=== PATIENT | male | born 1950 | race Caucasian/White ===

== ENCOUNTER 2016-11-10 12:37 | Emergency (ER) | payer BC, MEDICARE ==
[2016-11-10] MEDS ORDERED: SODIUM CHLORIDE 0.9% 500 ML IV STA (14:02)
[2016-11-10 14:42] LABS: Basophils # (A) 0.1 k/uL (0-0.2); Basophils % (A) 1 %; CH 31.2; CHCM 33.7; Eosinophils # (A) 0.3 k/uL (0-0.7); Eosinophils % (A) 3 %; HCT 43.6 % (39.0-53.0); HDW 2.62; HGB 14.4 gm/dL (13.0-17.5); Luc # (Auto) 0.17; Luc % (Auto) 2; Lymphocytes % (A) 10 %; MCH 30.8 pg (25.0-35.0); MCHC 33.2 g/dL (31.0-37.0); Monocytes # (A) 0.4 k/uL (0-1.0); Monocytes % (A) 5 %; Neutrophils # (A) 7.7 k/uL (1.3-7.7); Neutrophils % (A) 80 %; RBC 4.68 m/uL (4.30-5.90); RDW 13.3 % (11.5-15.5); WBC 9.6 k/uL (3.8-10.6); WBC (Perox) 9.06
[2016-11-10 14:44] LABS: Appearance,Urine Clear (Clear); Bilirubin,Urine Negative (Negative); Glucose,Urine (UA) Negative (Negative); Ketones,Urine Negative (Negative); Leukocyte Esterase,Urine Negative (Negative); Mucus,Urine Rare /hpf; Nitrite,Urine Negative (Negative); PH, Urine 5.5 (5.0-8.0); Particle Count 2254; Protein,Urine 1+ (Negative); RBC,Urine 1 /hpf (0-5); Specific Gravity,Urine 1.013 (1.001-1.035); UA Billing (MACRO vs. MICRO) MICRO; Urobilinogen,Urine <2.0 mg/dL (<2.0); WBC,Urine 2 /hpf (0-5)
[2016-11-10 14:51] LABS: Calcium 9.1 mg/dL (8.4-10.2); Potassium 4.1 mmol/L (3.5-5.1); Total Bilirubin 0.5 mg/dL (0.2-1.3); Total Protein 7.3 g/dL (6.3-8.2)
--- NOTE | 2016-11-10 15:12 | XR ---
EXAMINATION TYPE: XR chest 2V DATE OF EXAM: 11/10/2016 2:46 PM COMPARISON: NONE HISTORY: Shortness of breath TECHNIQUE: Frontal and lateral views of the chest are obtained. FINDINGS: Scattered senescent parenchymal changes noted. Hyperinflation compatible with COPD. Clinical eventrat ion right hemidiaphragm. No evidence for infiltrate. No evidence for atelectasis. Heart size is stable. Mediastinal structures are stable and grossly unremarkable. No evidence for hilar prominence. Degenerative changes dorsal spine. IMPRESSION: 1. No evidence for acute pulmonary disease.
--- NOTE | 2016-11-10 15:43 | ED ---
Nausea/Vomiting/Diarrhea HPI - General Chief complaint: Nausea/Vomiting/Diarrhea Stated complaint: Cold/Flu Symptoms Time Seen by Provider: 11/10/16 13:57 Source: patient, RN notes reviewed Mode of arrival: ambulatory Limitations: no limitations - History of Present Illness Initial comments: 65-year-old male presents emergency Department chief complaint of nausea vomiting diarrhea and slight cough. Patient states his been present last 4 days. Patient denies any chest pain or shortness breath or palpitations. Patient denies fever or chills. Patient states he feels that he has the flu. Patient denies any sick contacts. Patient states he recently has been able to keep some fluids down. Patient hasn't dysuria hematuria. Patient offers no other complaints. - Related Data Home Medications Medication Instructions Recorded Confirmed Atenolol [Tenormin] 50 mg PO HS 08/28/15 11/10/16 Losartan/Hydrochlorothiazide 1 tab PO HS 08/28/15 11/10/16 [Hyzaar 100-25 Tablet] Ranitidine HCl [Zantac] 150 mg PO HS 08/28/15 11/10/16 Sertraline HCl [Zoloft] 200 mg PO DAILY 08/28/15 11/10/16 buPROPion XL [Wellbutrin Xl] 300 mg PO DAILY 08/28/15 11/10/16 traMADol HCL [Ultram] 100 mg PO HS 08/28/15 11/10/16 traMADol HCL [Ultram] 150 mg PO QAM 08/28/15 11/10/16 Gabapentin 600 mg PO TID 11/10/16 11/10/16 Loratadine [Claritin] 10 mg PO DAILY 11/10/16 11/10/16 Previous Rx's Medication Instructions Recorded Ondansetron Odt [Zofran Odt] 4 mg PO Q8HR PRN #10 tab 11/10/16 Allergies Allergy/AdvReac Type Severity Reaction Status Date / Time No Known Allergies Allergy Verified 11/10/16 14:32 Review of Systems ROS Statement: Those systems with pertinent positive or pertinent negative responses have been documented in the HPI. ROS Other: All systems not noted in ROS Statement are negative. Past Medical History Past Medical History: Diabetes Mellitus, GERD/Reflux, Hyperlipidemia, Hypertension, Osteoarthritis (OA), Prostate Disorder, Respiratory Disorder, Sleep Apnea/CPAP/BIPAP Additional Past Medical History / Comment(s): diet control diabetic, enlarged prostate History of Any Multi-Drug Resistant Organisms: None Reported Past Surgical History: Adenoidectomy, Bariatric Surgery, Tonsillectomy Additional Past Surgical History / Comment(s): uvula surgery, lap band Past Anesthesia/Blood Transfusion Reactions: No Reported Reaction, Family History of Problems w/ Anesthesia Additional Past Anesthesia/Blood Transfusion Reaction / Comment(s): mother-had problem with anesthesia 30 yrs ago-not sure what Past Psychological History: Anxiety, Depression Smoking Status: Former smoker Past Alcohol Use History: Rare Past Drug Use History: None Reported - Past Family History Father Family Medical History: Cancer (Skin) Mother Family Medical History: Diabetes Mellitus Brother(s) Family Medical History: No Reported History Sister(s) Family Medical History: Diabetes Mellitus Son(s) Family Medical History: No Reported History General Exam Limitations: no limitations General appearance: alert, in no apparent distress Head exam: Present: atraumatic, normocephalic, normal inspection Eye exam: Present: normal appearance, PERRL, EOMI. Absent: scleral icterus, conjunctival injection, periorbital swelling ENT exam: Present: normal exam, normal oropharynx, mucous membranes moist, TM's normal bilaterally, normal external ear exam Neck exam: Present: normal inspection, full ROM. Absent: tenderness, meningismus, lymphadenopathy Respiratory exam: Present: normal lung sounds bilaterally. Absent: respiratory distress, wheezes, rales, rhonchi, stridor Cardiovascular Exam: Present: regular rate, normal rhythm, normal heart sounds. Absent: systolic murmur, diastolic murmur, rubs, gallop, clicks GI/Abdominal exam: Present: soft, normal bowel sounds. Absent: distended, tenderness, guarding, rebound, rigid Course Vital Signs 11/10/16 11/10/16 12:53 14:29 Temperature 97.6 F Pulse Rate 62 66 Respiratory 17 18 Rate Blood Pressure 136/75 139/79 O2 Sat by Pulse 95 95 Oximetry Medical Decision Making - Medical Decision Making 65-year-old male present emergency department with cold like symptoms and GI symptoms. Patient's lab work within normal limits other than slightly elevated creatinine. This is most likely patient's baseline. Patient will be discharged at this time. Return parameters were discussed. - Lab Data Result diagrams: 11/10/16 14:30 11/10/16 14:30 Lab Results 11/10/16 11/10/16 11/10/16 Range/Units 14:30 14:30 14:30 WBC 9.6 (3.8-10.6) k/uL RBC 4.68 (4.30-5.90) m/uL Hgb 14.4 (13.0-17.5) gm/dL Hct 43.6 (39.0-53.0) % MCV 93.0 (80.0-100.0) fL MCH 30.8 (25.0-35.0) pg MCHC 33.2 (31.0-37.0) g/dL RDW 13.3 (11.5-15.5) % Plt Count 280 (150-450) k/uL Neutrophils % 80 % Lymphocytes % 10 % Monocytes % 5 % Eosinophils % 3 % Basophils % 1 % Neutrophils # 7.7 (1.3-7.7) k/uL Lymphocytes # 1.0 (1.0-4.8) k/uL Monocytes # 0.4 (0-1.0) k/uL Eosinophils # 0.3 (0-0.7) k/uL Basophils # 0.1 (0-0.2) k/uL Sodium 136 L (137-145) mmol/L Potassium 4.1 (3.5-5.1) mmol/L Chloride 99 (98-107) mmol/L Carbon Dioxide 26 (22-30) mmol/L Anion Gap 11 mmol/L BUN 21 H (9-20) mg/dL Creatinine 1.50 H (0.66-1.25) mg/dL Est GFR (MDRD) Af Amer 57 (>60 ml/min/1.73 sqM) Est GFR (MDRD) Non-Af 47 (>60 ml/min/1.73 sqM) Glucose 152 H (74-99) mg/dL Calcium 9.1 (8.4-10.2) mg/dL Total Bilirubin 0.5 (0.2-1.3) mg/dL AST 34 (17-59) U/L ALT 51 (21-72) U/L Alkaline Phosphatase 75 (38-126) U/L Total Protein 7.3 (6.3-8.2) g/dL Albumin 3.9 (3.5-5.0) g/dL Amylase 66 (30-110) U/L Lipase 98 (23-300) U/L Urine Color Yellow Urine Appearance Clear (Clear) Urine pH 5.5 (5.0-8.0) Ur Specific [place] 1.013 (1.001-1.035) Urine Protein 1+ H (Negative) Urine Glucose (UA) Negative (Negative) Urine Ketones Negative (Negative) Urine Blood Negative (Negative) Urine Nitrate Negative (Negative) Urine Bilirubin Negative (Negative) Urine Urobilinogen <2.0 (<2.0) mg/dL Ur Leukocyte Esterase Negative (Negative) Urine RBC 1 (0-5) /hpf Urine WBC 2 (0-5) /hpf Hyaline Casts 3 H (0-2) /lpf Urine Mucus Rare H (None) /hpf Influenza Type A RNA (Not Detectd) Influenza Type B (PCR) (Not Detectd) 11/10/16 Range/Units 14:30 WBC (3.8-10.6) k/uL RBC (4.30-5.90) m/uL Hgb (13.0-17.5) gm/dL Hct (39.0-53.0) % MCV (80.0-100.0) fL MCH (25.0-35.0) pg MCHC (31.0-37.0) g/dL RDW (11.5-15.5) % Plt Count (150-450) k/uL Neutrophils % % Lymphocytes % % Monocytes % % Eosinophils % % Basophils % % Neutrophils # (1.3-7.7) k/uL Lymphocytes # (1.0-4.8) k/uL Monocytes # (0-1.0) k/uL Eosinophils # (0-0.7) k/uL Basophils # (0-0.2) k/uL Sodium (137-145) mmol/L Potassium (3.5-5.1) mmol/L Chloride (98-107) mmol/L Carbon Dioxide (22-30) mmol/L Anion Gap mmol/L BUN (9-20) mg/dL Creatinine (0.66-1.25) mg/dL Est GFR (MDRD) Af Amer (>60 ml/min/1.73 sqM) Est GFR (MDRD) Non-Af (>60 ml/min/1.73 sqM) Glucose (74-99) mg/dL Calcium (8.4-10.2) mg/dL Total Bilirubin (0.2-1.3) mg/dL AST (17-59) U/L ALT (21-72) U/L Alkaline Phosphatase (38-126) U/L Total Protein (6.3-8.2) g/dL Albumin (3.5-5.0) g/dL Amylase (30-110) U/L Lipase (23-300) U/L Urine Color Urine Appearance (Clear) Urine pH (5.0-8.0) Ur Specific [place] (1.001-1.035) Urine Protein (Negative) Urine Glucose (UA) (Negative) Urine Ketones (Negative) Urine Blood (Negative) Urine Nitrate (Negative) Urine Bilirubin (Negative) Urine Urobilinogen (<2.0) mg/dL Ur Leukocyte Esterase (Negative) Urine RBC (0-5) /hpf Urine WBC (0-5) /hpf Hyaline Casts (0-2) /lpf Urine Mucus (None) /hpf Influenza Type A RNA Not Detected (Not Detectd) Influenza Type B (PCR) Not Detected (Not Detectd) Disposition Clinical Impression: URI (upper respiratory infection), Nausea vomiting and diarrhea Disposition: HOME SELF-CARE Condition: Stable Instructions: Acute Nausea and Vomiting (ED) Additional Instructions: Please return to the Emergency Department if symptoms worsen or any other concerns. Prescriptions: Ondansetron Odt [Zofran Odt] 4 mg PO Q8HR PRN #10 tab PRN Reason: Nausea Time of Disposition: 15:43
[2016-11-10 16:01] VITALS: BP 132/68; PULSE 53; RESP 16; TEMP 98.3
== END 2016-11-10 15:58 | disposition home or self-care (01) ==
LOC: EC 12:37
DX: J06.9 Acute upper respiratory infection, unspecified (principal); R11.2 Nausea with vomiting, unspecified; R19.7 Diarrhea, unspecified; K21.9 Gastro-esophageal reflux disease without esophagitis; I10 Essential (primary) hypertension; F32.9 Major depressive disorder, single episode, unspecified; Z87.891 Personal history of nicotine dependence; Z79.899 Other long term (current) drug therapy
CPT/HCPCS: 36415; 71020; 80053; 81001; 82150; 83690; 85025; 87502; 96360; 99284

== ENCOUNTER → 2017-02-26 | Outpatient (CLI) | payer MEDICARE ==
[~2017-02-26] MED LIST: REGADENOSON 0.4 MG/5 ML SYRINGE IV ONE
--- NOTE | 2017-02-26 11:47 | NM ---
EXAMINATION TYPE: NM stress lexiscan cardiolite DATE OF EXAM: 02/26/2017 COMPARISON: NONE HISTORY: Chest pain TECHNIQUE: After the intravenous administration of 10.88 mCi Tc 99m Sestamibi - Cardiolite resting S PECT images acquired 45 minutes post injection. The patient received 0.4mg Lexiscan, 26.9 mCi Tc 99m Sestamibi - Stress images obtained [address] injection FINDINGS: Review of stress and rest SPECT images demonstrates fixed defect involving the inferior wall the myoc ardium. Corresponding wall motion abnormality noted. Could not exclude a small area of stress-induced reversibility involving the lateral wall. Gated analysis shows normal wall motion with an estimated left ventricular ejection fraction of 59 %. IMPRESSION: 1. Could not exclude a small area of stress-induced reversible ischemia inferior lateral wall. 2. Fixed defect inferior wall myocardium. 3. Ejection fraction 59%. A Yellow message has been communicated to Marcos Clark MD via the [employer] system on 02/26/2017 11:44 AM, Message ID [id number].
--- NOTE | 2017-02-26 13:06 | EST ---
DATE OF SERVICE: 02/26/2017 AGE: 66Y SEX: M HT: 6'1" WT: 250 lbs. Protocol [place]: Other: Lexiscan Cardiolite Stage: Dur. of Exercise: *Heart Rate Blood Pressure *Rest: 49 Rest: 120/73 * *Max. Achieved: 65 Maximum BP: 139/79 85% PMHR: 131 100% PMHR: 154 *METS: INDICATIONS: MEDICATIONS: Given Lexiscan injection over a period of 15 seconds. Peak heart rate of 65 was achieved. Maximum blood pressure of 139/79 mmHg was noted. Resting EKG showed normal sinus rhythm with normal RI interval and QRS duration and normal ST-T waves. During Lexiscan injection, patient developed a left bundle branch block pattern subsequently without any symptoms. Subsequently patient converted to normal conduction. FINAL IMPRESSION: 1. This patient developed left bundle branch block during Lexiscan injection which converted back to the normal conduction subsequently. 2. Patient did not complain of any chest pain during the test. 3. Correlation with the nuclear study is suggested.
== END | disposition home or self-care (01) ==
LOC: RADNMMAIN 08:23
PROVIDERS: ATTEND Family Medicine
DX: R94.39 Abnormal result of other cardiovascular function study (principal); R06.00 Dyspnea, unspecified; R61 Generalized hyperhidrosis; I10 Essential (primary) hypertension
CPT/HCPCS: 93017; 78452; A9500; J2785

== ENCOUNTER → 2017-02-27 | Outpatient (CLI) | payer MEDICARE ==
[2017-02-27 15:00] LABS: CH 30.5; CHCM 32.5; HCT 45.5 % (39.0-53.0); HDW 2.28; HGB 14.7 gm/dL (13.0-17.5); MCH 30.4 pg (25.0-35.0); MCHC 32.3 g/dL (31.0-37.0); Mean Platelet Volume 6.7; RBC 4.84 m/uL (4.30-5.90); RDW 13.8 % (11.5-15.5); WBC 11.2 k/uL (3.8-10.6)
[2017-02-27 15:13] LABS: Potassium 4.9 mmol/L (3.5-5.1)
== END | disposition home or self-care (01) ==
LOC: LABPAT 14:38
PROVIDERS: ATTEND Internal Medicine Interventional Cardiology
DX: Z01.812 Encounter for preprocedural laboratory examination (principal); R94.30 Abnormal result of cardiovascular function study, unspecified
CPT/HCPCS: 36415; 80051; 82565; 84520; 85027

== ENCOUNTER 2017-03-11 07:01 | Day surgery (SDC) | payer MEDICARE ==
[2017-03-06 13:07] VITALS: BMI 33.6
[~2017-03-11 07:01] MED LIST changes: +ALPRAZolam 0.25 MG TAB PO PRN; +ALPRAZolam 0.5 MG TAB PO PRN; +ASPIRIN 325 MG TAB PO STA; +ATORVASTATIN 80 MG TAB PO STA; +NITROGLYCERIN SL TABS 0.4 MG TAB SUBLINGUAL PRN; -REGADENOSON 0.4 MG/5 ML SYRINGE IV ONE; +SODIUM CHLORIDE 0.9% 1,000 ML in EMPTY BAG 1 BAG IV ONE
[2017-03-11] MEDS ORDERED: ASPIRIN 81 MG CHEW ONE (07:30)
[2017-03-11 07:42] VITALS: TEMP 99.1
[2017-03-11] MEDS ORDERED: amLODIPine 10 MG TAB PO STA (07:46)
[2017-03-11] MEDS ORDERED: SERTRALINE 100 MG TAB PO ONE (09:00)
[2017-03-11] MEDS ORDERED: buPROPion 75 MG TAB PO ONE (09:00)
[2017-03-11] MEDS ORDERED: LIDOCAINE 2% INJ 20 MG/ML (20 ML MDV) ONE (10:30)
[2017-03-11] MEDS ORDERED: HEPARIN SODIUM 1,000 UNIT/ML VIAL ONE (10:30)
[2017-03-11] MEDS ORDERED: diphenhydrAMINE 50 MG/ML 1 ML VIAL ONE (10:30)
[2017-03-11] MEDS ORDERED: MIDAZOLAM 2 MG/2 ML VIAL ONE (10:30)
[2017-03-11] MEDS ORDERED: VERAPAMIL 2.5 MG/ML 2 ML AMP ONE (10:31)
[2017-03-11] MEDS ORDERED: MIDAZOLAM 2 MG/2 ML VIAL IV ONE (10:54)
[2017-03-11] MEDS ORDERED: diphenhydrAMINE 50 MG/ML 1 ML VIAL IVP ONE (10:54)
[2017-03-11] MEDS ORDERED: LIDOCAINE 2% INJ 20 MG/ML SQ ONE (10:59)
[2017-03-11] MEDS: VERAPAMIL SYRINGE (5 MG/10 ML) INTRAARTER ONE ×2 (11:00→11:14)
[2017-03-11] MEDS ORDERED: HEPARIN SODIUM 1,000 UNIT/ML VIAL IV ONE (11:02)
[2017-03-11] MEDS ORDERED: IODIXANOL 320 MG/ML 100 ML INTRAARTER ONE (11:12)
[2017-03-11] MEDS ORDERED: RX INFO: IV CONTRAST WAS GIVEN 1 EACH MISC MISCELLANE PRN (11:41)
[2017-03-11] MEDS ORDERED: SODIUM CHLORIDE 0.9% 1,000 ML IV SCH ×2 (11:45)
[2017-03-11] MEDS ORDERED: buPROPion 75 MG TAB PO SCH (16:00)
[2017-03-11 16:32] VITALS: BP 156/67
[2017-03-11 18:37] VITALS: PULSE 65; RESP 16
[2017-03-12] MEDS ORDERED: SERTRALINE 100 MG TAB PO SCH (09:00)
--- NOTE | 2017-03-13 13:14 | PCN ---
DATE OF SERVICE: 03/11/2017 PROCEDURE: Left heart catheterization and coronary angiography. PERFORMED BY: Dr. Jose aGrcia. CLINICAL INFORMATION: Mr. Dipesh Monaco is a 66-year-old gentleman with a history of hypertension, hyperlipidemia, previous lap band surgery and diet- controlled diabetes mellitus who also has chronic kidney disease with a creatinine of 1.78. He had a positive stress test in terms of exertional chest tightness and shortness of breath. He was advised coronary angiography and explained the risks, benefits and options. Specifically risk of contrast- induced arthropathy was discussed. Patient was hydrated orally and also in the hospital intravenously prior to the procedure. PROCEDURE NOTE: Under local anesthesia and strict aseptic precautions, a 6 Danish introducer was placed in the right radial artery. Using an Ultimate 1 catheter, I performed selective coronary angiography of the right coronary artery but had difficulty selecting the left one and used a JL4 catheter of 5 Danish caliber and performed selective coronary angiography of the left system. A pigtail catheter was used to check pressures but LV gram was not performed. About 45 to 50 mL of contrast was used. The sheath was taken out and TR band applied as per protocol with a good saturation of fingers of the right hand of 96%. A moderate conscious sedation was provided for a total duration of 30 minutes with IV Versed and Benadryl. CARDIAC CATHETERIZATION FINDINGS: The left ventricle end diastolic pressure was 12 mmHg and there was no gradient across the aortic valve. CORONARY ANGIOGRAPHY FINDINGS: Right coronary artery is a dominant vessel, has minor irregularities, no significant disease distally, bifurcates into large PDA and PLV both of which supplies sizable amount of myocardium. There is no significant disease in the dominant RCA. The PDA has about a 30% to 35% stenosis at it comes off from the RCA but no significant lesions were noted. LEFT MAIN CORONARY ARTERY: Short patent diseased vessel that bifurcates into LAD and circumflex. LEFT ANTERIOR DESCENDING CORONARY ARTERY: Good caliber vessel, extends along the anterior wall, gives off septal and diagonal branches, runs all the way to the apex supplying a sizable amount of myocardium. No significant disease is noted. In the midportion, a fair caliber diagonal supplies a sizable amount of myocardium. LEFT POSTERIOR CIRCUMFLEX CORONARY ARTERY: Technically, a nondominant vessel, has minor irregularities. In the proximal portion it gives off an obtuse marginal branch which has a first obtuse marginal branch which has a 40% stenosis in the proximal portion but no critical narrowing is noted. It almost looks like a ramus and then the vessel continues laterally, bifurcates into two small branches. The main circumflex in the AV groove is of small caliber and distribution with limited area of myocardium being supplied. The ramus intermedium/obtuse minor has about a 30% to 40% narrowing which I do not believe is significant, angiographically. FINAL IMPRESSION: This patient has a right dominant system, no significant obstructive coronary artery disease in the right coronary artery or LAD system. First obtuse minor or ramus has about a 40% narrowing. Circumflex is nondominant. Filling pressures are normal. RECOMMENDATION: I am recommending aggressive medical therapy with risk factor modification. No intervention necessary. Findings are discussed with the patient and his 2 sisters and he will be discharged later on today if he remains stable. DASHAWN
--- NOTE | 2017-03-13 13:19 | MISC ---
DATE: 03/11/[address] Clark: Thank you for the opportunity to participate in the care of Mr. Dipesh Monaco. I am enclosing my cardiac cath report for your records. This gentleman has about a 40% stenosis involving the first obtuse marginal/ramus intermedius. He has a right dominant system without significant disease in the RCA or in the LAD. Filling pressures are normal. Aggressive medical therapy with risk factor modification is advised and I will see the patient on the following his cardiac cath to evaluate the site. Thank you for your referral and please call for questions. With kindest regards. Sincerely yours, Jose TAMEZ
== END 2017-03-11 18:37 | disposition home or self-care (01) ==
LOC: CATHCVL 07:01
PROVIDERS: ATTEND Internal Medicine Interventional Cardiology
DX: I25.110 Atherosclerotic heart disease of native coronary artery with unstable angina pectoris (principal); R94.39 Abnormal result of other cardiovascular function study; I12.9 Hypertensive chronic kidney disease with stage 1 through stage 4 chronic kidney disease, or unspecified chronic kidney disease; E11.22 Type 2 diabetes mellitus with diabetic chronic kidney disease; N18.9 Chronic kidney disease, unspecified; E78.00 Pure hypercholesterolemia, unspecified; Z98.84 Bariatric surgery status; Z82.49 Family history of ischemic heart disease and other diseases of the circulatory system; Z79.82 Long term (current) use of aspirin; Z79.899 Other long term (current) drug therapy
CPT/HCPCS: 93458; 99152; C1769; C1894; J2001; J2250; J1200; Q9967; J1644

== ENCOUNTER → 2017-03-14 | Outpatient (CLI) | payer MEDICARE ==
[2017-03-14 09:46] LABS: Calcium 9.2 mg/dL (8.4-10.2); Potassium 3.9 mmol/L (3.5-5.1)
== END | disposition home or self-care (01) ==
LOC: LABWHC1 09:08
PROVIDERS: ATTEND Internal Medicine Interventional Cardiology
DX: I12.9 Hypertensive chronic kidney disease with stage 1 through stage 4 chronic kidney disease, or unspecified chronic kidney disease (principal); N18.9 Chronic kidney disease, unspecified
CPT/HCPCS: 36415; 80048

== ENCOUNTER → 2018-08-20 | Outpatient (CLI) | payer MEDICARE ==
--- NOTE | 2018-08-20 08:35 | US ---
EXAMINATION TYPE: US duplex aorta DATE OF EXAM: 08/20/2018 COMPARISON: NONE CLINICAL HISTORY: 67-year-old male I71.4 AAA w/o rupture. Screening TECHNIQUE: Multiple sonographic images of the abdominal aorta are obtained. FINDINGS: EXAM MEASUREMENTS: Abdominal Aorta: Proximal: 2.5 x 2.5 cm Mid: 2.1 x 2.1 cm Distal: 1.7 x 2.0 cm Bifurcation: BUZZ: 1.2 x 1.2 cm [place]: 1.2 x 1.3 cm Product Development Carpenter notes:Proximal portion upper limits of normal, mid, distal, and iliacs appear wnl IMPRESSION: Borderline ectatic upper abdominal aorta at 2.5 cm. Otherwise, no evidence for AAA.
== END | disposition home or self-care (01) ==
LOC: RADUSWWP 07:25
PROVIDERS: ATTEND Family Medicine
DX: I77.811 Abdominal aortic ectasia (principal); Z87.891 Personal history of nicotine dependence
CPT/HCPCS: 93979

== ENCOUNTER → 2020-06-20 | Outpatient (CLI) | payer MEDICARE ==
[2020-06-20 15:03] VITALS: BP 134/69; PULSE 91; RESP 16; TEMP 98.4; BMI 32.3
--- NOTE | 2020-06-20 16:17 | P.BASOAP ---
Subjective Progress Note Date: 06/20/20 Principal diagnosis: Morbid obesity Patient on our service. Last seen several years ago. No records available. Nahed's band was placed in 2005. Was happy a stat 384. Currently at 245. Has been happy with his LAP-BAND. States he has been having increased episodes of dysphagia and vomiting. Mild reflux at times. Somewhat reluctant to have any fluid removed. Objective - Vital Signs Vital signs: Vital Signs Temp 98.4 F 06/20/20 14:58 Pulse 91 06/20/20 14:58 Resp 16 06/20/20 14:58 BP 134/69 06/20/20 14:58 Pulse Ox Intake & Output 06/19/20 06/20/20 06/20/20 18:59 06:59 18:59 Weight 111.158 kg - Exam Abdomen: Soft, nontender, nondistended Assessment/Plan (1) Morbid obesity Narrative/Plan: Options reviewed. Will loosen the patient's band. He does not want us to empty the band currently. Following that we'll send for esophagram to evaluate for dysphagia. The patient's lap band port was palpated. The site was aseptically prepped. The Mason needle was advanced into the port. A total of 2 mL was present in the band. I removed 1 mL at this time leaving a total of 1 mL. Pressure was held and a sterile dressing was applied. Plan: Date: 06/20/20 Initial Weight: 154.221 kg Initial BMI: 44.9 Current Weight: 111.158 kg Current BMI: 32.3 Type of Surgery: Total Volume in Band: Previous Volume: Volume Removed: Volume Added: Band Size:
== END | disposition home or self-care (01) ==
LOC: BARWHC3 13:28
PROVIDERS: ATTEND Surgery
DX: Z46.51 Encounter for fitting and adjustment of gastric lap band (principal); E66.01 Morbid (severe) obesity due to excess calories; Z68.32 Body mass index [BMI] 32.0-32.9, adult
CPT/HCPCS: 99212

== ENCOUNTER → 2020-07-07 | Outpatient (CLI) | payer MEDICARE ==
--- NOTE | 2020-07-07 11:26 | FL ---
EXAMINATION TYPE: FL barium swallow DATE OF EXAM: 07/07/2020 CLINICAL INDICATION: 69-year-old male R13.10, dysphagia. Patient with lap band for 12 years, 1 mL rem sherrill last month. Feeling better. Total fluoroscopy time: 2 minutes 23 seconds. Total images: 21 COMPARISON: None FINDINGS: The swallowing mechanism is normal and hypopharyngeal anatomy is preserved. There is normal course and caliber of the esophagus. Mild dysmotility is demonstrated with blunted se condary stripping waves. Single contrast technique limits the mucosa. No obvious lesion is identified . Lap band device is in place and appears a peripherally oriented. There is satisfactory passage across the lap band with only minimal restriction to the 4 ounces of thin barium that the patient ingested. An usual course to the stomach is incidentally noted. IMPRESSION: No evidence for lap band prolapse. Only minimal restriction to the 4 ounces of thin barium that the p atient ingested. The majority of the contrast traverses the lap band promptly.
== END | disposition home or self-care (01) ==
LOC: RADUSWWP 10:29
PROVIDERS: ATTEND Surgery
DX: R13.14 Dysphagia, pharyngoesophageal phase (principal)
CPT/HCPCS: 74220

== ENCOUNTER → 2020-07-25 | Day surgery (SDC) | payer MEDICARE ==
[2020-07-21 10:43] VITALS: BMI 33.2
[~2020-07-25] MED LIST changes: -ALPRAZolam 0.25 MG TAB PO PRN; -ALPRAZolam 0.5 MG TAB PO PRN; -ASPIRIN 325 MG TAB PO STA; -ATORVASTATIN 80 MG TAB PO STA; +GLYCOPYRROLATE 0.2 MG/ML 2 ML VIAL ONE; +LACTATED RINGERS 1,000 ML IV ONE; +LACTATED RINGERS 1,000 ML IV SCH; +LIDOCAINE 1% (10MG/ML) FOR IV START INTRADERMA PRN; +LIDOCAINE 1% INJ 10MG/ML (20 ML MDV) ONE; -NITROGLYCERIN SL TABS 0.4 MG TAB SUBLINGUAL PRN; +PROPOFOL 10 MG/ML 20 ML VIAL IV ONE; -SODIUM CHLORIDE 0.9% 1,000 ML in EMPTY BAG 1 BAG IV ONE
[2020-07-25 07:18] VITALS: RESP 18; TEMP 97.8
[2020-07-25 07:26] LABS: Glucose,Whole Blood 113 mg/dL (75-99)
--- NOTE | 2020-07-25 08:06 | P.GSHP ---
History of Present Illness H&P Date: 07/25/20 Patient on our service from previous lap band placement. Her today for upper endoscopy. Has had complaints of increasing dysphagia and reflux. One month ago had 1 mL of fluid removed from his band. He has 1 mL left in there. He says his symptoms have mostly resolved. Past Medical History Past Medical History: Atrial Fibrillation, Asthma, Diabetes Mellitus, GERD/Reflux, Hyperlipidemia, Hypertension, Osteoarthritis (OA), Prostate Disorder, Sleep Apnea/CPAP/BIPAP Additional Past Medical History / Comment(s): enlarged prostate ; diagnosed with AFIB History of Any Multi-Drug Resistant Organisms: None Reported Past Surgical History: Adenoidectomy, Bariatric Surgery, Tonsillectomy Additional Past Surgical History / Comment(s): uvula surgery, lap band Past Anesthesia/Blood Transfusion Reactions: No Reported Reaction, Family History of Problems w/ Anesthesia Additional Past Anesthesia/Blood Transfusion Reaction / Comment(s): mother-had problem with anesthesia 30 yrs ago-not sure what Smoking Status: Former smoker - Past Family History Father Family Medical History: Cancer Additional Family Medical History / Comment(s): skin and throat cancer Mother Family Medical History: Diabetes Mellitus Brother(s) Family Medical History: No Reported History Sister(s) Family Medical History: Diabetes Mellitus Son(s) Family Medical History: No Reported History Medications and Allergies Home Medications Medication Instructions Recorded Confirmed Type traMADol HCL [Ultram] 100 mg PO BID 08/28/15 06/20/20 History Gabapentin 600 mg PO BID 11/10/16 07/21/20 History Rosuvastatin Calcium [Crestor] 5 mg PO HS 03/06/17 07/21/20 History amLODIPine [Norvasc] 10 mg PO DAILY 03/06/17 07/21/20 History Montelukast [Singulair] 10 mg PO HS 05/22/18 07/21/20 History metFORMIN HCL [Glucophage] 500 mg PO DAILY 05/22/18 07/21/20 History Apixaban [Eliquis] 5 mg PO BID 06/20/20 07/21/20 History Metoprolol Tartrate [Lopressor] 25 mg PO BID 06/20/20 07/21/20 History Amiodarone [Cordarone] 200 mg PO HS 07/21/20 07/21/20 History Ipratropium/Albuterol Sulfate 1 puff INHALATION BID 07/21/20 07/21/20 History [Combivent Respimat Inhaler] Irbesartan [Avapro] 300 mg PO HS 07/21/20 07/21/20 History hydrALAZINE HCL 25 mg PO TID 07/21/20 07/21/20 History Allergies Allergy/AdvReac Type Severity Reaction Status Date / Time No Known Allergies Allergy Verified 06/20/20 16:09 Surgical - Exam Vital Signs Temp Pulse Resp BP Pulse Ox 97.8 F 57 L 18 155/71 95 07/25/20 07:17 07/25/20 07:17 07/25/20 07:17 07/25/20 07:17 07/25/20 07:17 Physical exam: General: Well-developed, well-nourished HEENT: Normocephalic, sclerae nonicteric Abdomen: Nontender, nondistended Extremities: No edema Neuro: Alert and oriented Results - Labs Abnormal Lab Results - Last 24 Hours (Table) 07/25/20 Range/Units 07:24 POC Glucose (mg/dL) 113 H (75-99) mg/dL Assessment and Plan (1) GERD (gastroesophageal reflux disease) Narrative/Plan: Will proceed with upper endoscopy. Current Visit: Yes Status: Acute Code(s): K21.9 - GASTRO-ESOPHAGEAL REFLUX DISEASE WITHOUT ESOPHAGITIS SNOMED Code(s): 865265627
--- NOTE | 2020-07-25 08:16 | P.PCN ---
Date of Procedure: 07/25/20 Procedure(s) Performed: Preoperative Dx: GERD, dysphagia Postoperative Dx: Mild gastritis, esophageal plaque suspicious for fungal esophagitis Procedure: EGD with Bx Anesthesia: Sedation Endoscopist: Dr. Galvan Specimens: Sedation Endoscopic Procedure: The patient was on the endoscopy table in the left dec ubitus position. The Olympus gastroscope was inserted into the oropharynx and passed under direct visualization to the region of the third portion of the duodenum. From that point the scope was slowly withdrawn inspecting all surfaces carefully. There were no neoplastic inflammatory or polypoid lesions throughout the duodenum. The pylorus was widely patent. The stomach was carefully inspected. There was mild gastritis present. A biopsy of the antrum took place to rule out H. pylori. Retroflexion revealed a normal band plication. The esophagus was then carefully examined. There were no neoplastic inflammatory or polypoid lesions throughout the visualized esophagus. There were some whitish plaques adherent to the mucosa. Biopsies were taken to evaluate for fungal esophagitis. The patient was then taken to the recovery room in stable condition per anesthesia guidelines. Recommendations: We'll empirically begin nystatin swish and swallow. Await biopsy results. Patient interested in tightening his band. Would consider a small fill.
[2020-07-25 08:35] VITALS: BP 123/71; PULSE 52
== END ==
LOC: ORWHC2ENDO 07:01
PROVIDERS: ATTEND Surgery
DX: B37.81 Candidal esophagitis (principal); K29.50 Unspecified chronic gastritis without bleeding; K21.00 Gastro-esophageal reflux disease with esophagitis, without bleeding; I48.91 Unspecified atrial fibrillation; J45.909 Unspecified asthma, uncomplicated; E11.9 Type 2 diabetes mellitus without complications; K21.9 Gastro-esophageal reflux disease without esophagitis; E78.5 Hyperlipidemia, unspecified; I10 Essential (primary) hypertension; G47.33 Obstructive sleep apnea (adult) (pediatric); Z99.89 Dependence on other enabling machines and devices; M19.90 Unspecified osteoarthritis, unspecified site; Q79.1 Other congenital malformations of diaphragm; Z98.84 Bariatric surgery status; Z98.890 Other specified postprocedural states; Z87.891 Personal history of nicotine dependence; Z80.0 Family history of malignant neoplasm of digestive organs; Z80.8 Family history of malignant neoplasm of other organs or systems; Z83.3 Family history of diabetes mellitus; Z79.01 Long term (current) use of anticoagulants; Z79.891 Long term (current) use of opiate analgesic; Z79.899 Other long term (current) drug therapy
CPT/HCPCS: 43239; 88305; 88312; J2001; J2704

== ENCOUNTER → 2021-02-06 | Outpatient (CLI) | payer MEDICARE ==
[2021-02-06 15:36] VITALS: BP 174/71; PULSE 60; TEMP 97.4; BMI 37.8
--- NOTE | 2021-02-06 17:32 | P.BASOAP ---
Subjective Progress Note Date: 02/06/21 Principal diagnosis: Morbid obesity Patient returns for evaluation. He was last seen in July when he had an upper endoscopy. Patient was having dysphasia. Symptoms improved after his band was loosened from 2-1 mL. He has gained 40 pounds. He would like more fluid in the band. Objective - Vital Signs Vital signs: Vital Signs Temp 97.4 F L 02/06/21 15:32 Pulse 60 02/06/21 15:32 Resp BP 174/71 02/06/21 15:32 Pulse Ox Intake & Output 02/05/21 02/06/21 02/06/21 18:59 06:59 18:59 Weight 130.181 kg - Exam Abdomen: Soft, nontender, nondistended Assessment/Plan (1) Morbid obesity Narrative/Plan: Patient would like fluid in the band. We'll add 0.5 for a total of 1.5 mL. Fol low-up 2-3 months. The patient's lap band port was palpated. The site was aseptically prepped. The Mason needle was advanced into the port. A total of 0.5 ml of fluid was added. Pressure was held and a sterile dressing was applied. Plan: Date: 02/06/21 Initial Weight: 154.221 kg Initial BMI: 44.9 Current Weight: 130.181 kg Current BMI: 37.8 Type of Surgery: Total Volume in Band: 1.5 Previous Volume: Volume Removed: Volume Added: 0.5 Band Size:
== END ==
LOC: BARWHC3 13:09
PROVIDERS: ATTEND Surgery
DX: E66.01 Morbid (severe) obesity due to excess calories (principal); Z46.51 Encounter for fitting and adjustment of gastric lap band; Z68.37 Body mass index [BMI] 37.0-37.9, adult; Z87.891 Personal history of nicotine dependence
CPT/HCPCS: 99212

== ENCOUNTER → 2021-04-10 | Outpatient (CLI) | payer MEDICARE ==
[2021-04-10 13:50] VITALS: BP 174/78; PULSE 63; TEMP 97.5; BMI 38.6
--- NOTE | 2021-04-10 13:52 | P.BASOAP ---
Subjective Progress Note Date: 04/10/21 Principal diagnosis: Morbid obesity Patient complaining of decreased restriction. He was too tight at 2 mL. His band was loosened to 1 mL and he did have an upper endoscopy as well. Last visit his band was tightened to 1.5 mL. States it is still too loose and does not feel adequate restriction. He has gained some weight. Would like more fluid added in fact requesting to go back to cc. Objective - Vital Signs Vital signs: Vital Signs Temp 97.5 F L 04/10/21 13:48 Pulse 63 04/10/21 13:48 Resp BP 174/78 04/10/21 13:48 Pulse Ox Intake & Output 04/09/21 04/10/21 04/10/21 18:59 06:59 18:59 Weight 132.903 kg - Exam Abdomen: Soft, nontender, nondistended Assessment/Plan (1) Morbid obesity Narrative/Plan: Patient requesting additional fill. We'll increase to 1.8 mL. Return visit 2 months. The patient's lap band port was palpated. The site was aseptically prepped. The Mason needle was advanced into the port. A total of 0.3 ml of fluid was added for a total of 1.8 mL. Pressure was held and a sterile dressing was applied. Plan: Date: 04/10/21 Initial Weight: 154.221 kg Initial BMI: 44.9 Current Weight: 132.903 kg Current BMI: 38.6 Type of Surgery: Total Volume in Band: 1.8 Previous Volume: Volume Removed: Volume Added: 0.3 Band Size:
== END ==
LOC: BARWHC3 13:22
PROVIDERS: ATTEND Surgery
DX: E66.01 Morbid (severe) obesity due to excess calories (principal); Z46.51 Encounter for fitting and adjustment of gastric lap band; Z68.38 Body mass index [BMI] 38.0-38.9, adult
CPT/HCPCS: 99211

== ENCOUNTER → 2021-06-12 | Outpatient (CLI) | payer MEDICARE ==
[2021-06-12 09:31] VITALS: BP 144/74; PULSE 66; TEMP 98.2; BMI 38.1
--- NOTE | 2021-06-12 09:52 | P.BASOAP ---
Subjective Progress Note Date: 06/12/21 Principal diagnosis: Morbid obesity The patient comes to the office today considering a lap band adjustment. His band was too tight at 2 mL last June. It was loosened to 1. He has had 2 fills since then and he is now at 1.8 mL. The patient was considering adding 0.1 more to the band. He has been losing weight however. He does have some restriction. Still has rare episodes of dysphagia and regurgitation. Objective - Vital Signs Vital signs: Vital Signs Temp 98.2 F 06/12/21 09:28 Pulse 66 06/12/21 09:28 Resp BP 144/74 06/12/21 09:28 Pulse Ox Intake & Output 06/11/21 06/12/21 06/12/21 18:59 06:59 18:59 Weight 131.088 kg - Exam Abdomen: Soft, nontender, nondistended Assessment/Plan (1) Morbid obesity Narrative/Plan: Patient doing well at this time. Discussed options. We'll keep a 1.8 mL for now. Patient will contact me if he notices decreased restriction. Continue dietary and exercise regimen. Plan: Date: 06/12/21 Initial Weight: 154.221 kg Initial BMI: 44.9 Current Weight: 131.088 kg Current BMI: 38.1 Type of Surgery: Total Volume in Band: 1.8 Previous Volume: Volume Removed: Volume Added: Band Size:
== END ==
LOC: BARWHC3 09:11
PROVIDERS: ATTEND Surgery
DX: E66.01 Morbid (severe) obesity due to excess calories (principal); Z46.51 Encounter for fitting and adjustment of gastric lap band; Z68.38 Body mass index [BMI] 38.0-38.9, adult; Z87.891 Personal history of nicotine dependence
CPT/HCPCS: 99212

== ENCOUNTER → 2021-07-03 | Outpatient (CLI) | payer MEDICARE ==
--- NOTE | 2021-07-03 12:19 | XR ---
EXAMINATION TYPE: XR chest 2V DATE OF EXAM: 07/03/2021 COMPARISON: 11/10/2016 TECHNIQUE: PA and lateral views submitted. HISTORY: Preop FINDINGS: The lungs are clear and there is no pneumothorax, pleural effusion, or focal pneumonia. Partial cristobal ntration right hemidiaphragm. Heart size normal. No overt failure or pneumothorax. Arthropathy of the shoulders with diffuse osteopenia. Hyperinflation of the lungs. IMPRESSION: 1. Cardiomegaly correlate for COPD
== END | disposition home or self-care (01) ==
LOC: LABPAT 11:17
PROVIDERS: ATTEND Orthopaedic Surgery Orthopaedic Surgery of the Spine
DX: Z01.818 Encounter for other preprocedural examination (principal); M48.061 Spinal stenosis, lumbar region without neurogenic claudication; I51.7 Cardiomegaly
CPT/HCPCS: 71046; 87070

== ENCOUNTER → 2021-07-10 | Outpatient (CLI) | payer MEDICARE ==
[2021-07-10 13:06] LABS: Basophils # (A) 0.1 k/uL (0-0.2); Basophils % (A) 1 %; Eosinophils # (A) 0.2 k/uL (0-0.7); Eosinophils % (A) 2 %; HCT 37.8 % (39.0-53.0); Lymphocytes # (A) 1.3 k/uL (1.0-4.8); Lymphocytes % (A) 12 %; MCH 30.9 pg (25.0-35.0); MCHC 31.8 g/dL (31.0-37.0); MCV 97.1 fL (80.0-100.0); Mean Platelet Volume 7.9; Monocytes # (A) 0.5 k/uL (0-1.0); Monocytes % (A) 4 %; Neutrophils # (A) 8.7 k/uL (1.3-7.7); Neutrophils % (A) 80 %; Platelet Count 318 k/uL (150-450); RBC 3.89 m/uL (4.30-5.90); RDW 13.3 % (11.5-15.5); WBC 10.8 k/uL (3.8-10.6)
[2021-07-10 13:21] LABS: Partial Thromboplastin Time 26.8 sec (22.0-30.0); Prothrombin Time 11.1 sec (9.0-12.0)
[2021-07-10 13:22] LABS: Calcium 9.3 mg/dL (8.4-10.2); Potassium 4.7 mmol/L (3.5-5.1)
[2021-07-10 13:27] LABS: Appearance,Urine Clear (Clear); Bilirubin,Urine Negative (Negative); Blood,Urine Negative (Negative); Color,Urine Yellow; Glucose,Urine (UA) 2+ (Negative); Hyaline Casts,Urine 1 /lpf (0-2); Ketones,Urine Negative (Negative); Leukocyte Esterase,Urine Negative (Negative); Mucus,Urine Rare /hpf; Nitrite,Urine Negative (Negative); PH, Urine 5.5 (5.0-8.0); Protein,Urine 1+ (Negative); RBC,Urine <1 /hpf (0-5); Specific Gravity,Urine 1.019 (1.001-1.035); Urobilinogen,Urine <2.0 mg/dL (<2.0); WBC,Urine <1 /hpf (0-5)
== END | disposition home or self-care (01) ==
LOC: LABWHC1 11:56
PROVIDERS: ATTEND Orthopaedic Surgery Orthopaedic Surgery of the Spine
DX: Z01.812 Encounter for preprocedural laboratory examination (principal); M48.061 Spinal stenosis, lumbar region without neurogenic claudication; Z79.01 Long term (current) use of anticoagulants
CPT/HCPCS: 36415; 80048; 81001; 85025; 85610; 85730

== ENCOUNTER 2021-07-18 06:46 | Inpatient (IN) | payer MEDICARE ==
[2021-07-16 14:49] VITALS: BMI 38.5
[~2021-07-18 06:46] MED LIST changes: -GLYCOPYRROLATE 0.2 MG/ML 2 ML VIAL ONE; -LACTATED RINGERS 1,000 ML IV ONE; -LACTATED RINGERS 1,000 ML IV SCH; -LIDOCAINE 1% INJ 10MG/ML (20 ML MDV) ONE; -PROPOFOL 10 MG/ML 20 ML VIAL IV ONE; +ceFAZolin 1,000 MG in SODIUM CHLORIDE 0.9% IRRIGATIO 1,000 ML IRRIGATION PRN; +ceFAZolin 3 GM in SODIUM CHLORIDE 0.9% 100 ML IVPB PRN
[2021-07-18] MEDS ORDERED: ONDANSETRON 4 MG/2 ML VIAL IVP PRN ×2 (07:00→13:59)
[2021-07-18 07:25] LABS: Glucose,Whole Blood 141 mg/dL (75-99)
[2021-07-18] MEDS: LACTATED RINGERS 1,000 ML IV SCH ×2 (07:33→17:16)
[2021-07-18] MEDS ORDERED: LIDOCAINE 1% INJ 10MG/ML (20 ML MDV) ONE (08:00)
[2021-07-18] MEDS ORDERED: SUCCINYLCHOLINE CHLORIDE VIAL 200 MG/10 ML VIAL IV ONE (08:00)
[2021-07-18] MEDS ORDERED: KETAMINE 10 MG/ML 20 ML VIAL ONE (08:00)
[2021-07-18] MEDS ORDERED: ROCURONIUM 10 MG/ML (5 ML VIAL) IV ONE (08:00)
[2021-07-18] MEDS ORDERED: HYDROmorphone (PF) 1 MG/ML ONE (08:00)
[2021-07-18] MEDS ORDERED: MIDAZOLAM 2 MG/2 ML VIAL ONE (08:00)
[2021-07-18] MEDS ORDERED: SODIUM CHLORIDE 0.9% IRRIG 1,000 ML BTL IRRIGATION ONE (08:00)
[2021-07-18] MEDS ORDERED: ALBUTEROL INHALER 60 PUFF/8 GM INHALER (MHU) INHALATION ONE (08:00)
[2021-07-18] MEDS ORDERED: fentaNYL (PF) 50 MCG/ML 2 ML AMP ONE (08:00)
[2021-07-18] MEDS ORDERED: GLYCOPYRROLATE 0.2 MG/ML 2 ML VIAL ONE (08:00)
[2021-07-18] MEDS ORDERED: NEOSTIGMINE 1 MG/ML 10 ML VIAL ONE (08:00)
[2021-07-18] MEDS ORDERED: PROPOFOL 10 MG/ML 20 ML VIAL IV ONE (08:00)
[2021-07-18] MEDS ORDERED: PHENYLEPHRINE-0.9% NACL SYG 1,000 MCG/10 ML SYRINGE ONE (08:00)
[2021-07-18] MEDS ORDERED: ePHEDrine 50 MG/ML 1 ML AMP ONE (08:00)
[2021-07-18] MEDS ORDERED: ALBUMIN HUMAN 5% (25gm) 500 ML VIAL IVPB ONE (08:00)
[2021-07-18] MEDS ORDERED: HEPARIN SODIUM,PORCINE 10,000 UNIT/ML 1 ML VIAL ONE (08:00)
[2021-07-18] MEDS ORDERED: LIDOCAINE 0.5%-EPI 1:200,000 50 ML VIAL SQ ONE (08:02)
[2021-07-18] MEDS ORDERED: THROMBIN (BOVINE) 5,000 UNIT VIAL TOPICAL ONE (08:02)
[2021-07-18] MEDS ORDERED: GELATIN SPONGE,ABSORB (LARGE) 1 EACH SPONGE TOPICAL ONE (08:02)
[2021-07-18] MEDS ORDERED: LACTATED RINGERS 1,000 ML IV ONE ×4 (09:33→12:03)
[2021-07-18] MEDS ORDERED: HYDROmorphone 1 MG/ML 1 ML SYRINGE IVP PRN (13:58)
[2021-07-18] MEDS ORDERED: MAGNESIUM HYDROXIDE 2,400 MG/10 ML CUP PO PRN (13:58)
[2021-07-18] MEDS ORDERED: HYDROmorphone 0.5 MG/0.5 ML SYRINGE IVP PRN (13:58)
[2021-07-18] MEDS ORDERED: BENZOCAINE/MENTHOL LOZENG 1 EACH LOZENGE MUCOUS MEM PRN (13:58)
[2021-07-18] MEDS ORDERED: traMADol 50 MG TAB PO PRN (13:59)
--- NOTE | 2021-07-18 14:17 | P.OP ---
Date of Procedure: 07/18/21 Preoperative Diagnosis: Lumbar spinal stenosis, severe degenerative disease, lower extremity radiculopathy, neurogenic claudication, lower extremity weakness Postoperative Diagnosis: Same Anesthesia: GETA Pathology: none sent Condition: stable Disposition: PACU Description of Procedure: DESCRIPTION OF PROCEDURE(S): BRIEF OPERATIVE NOTE Preoperative Diagnosis: Lumbar spinal stenosis, severe degenerative disease, lower extremity radiculopathy, neurogenic claudication, lower extremity weakness Postoperative Diagnosis: Same Procedure: Laminectomy and decompression L3-4, L4-5, L5-S1 Computer CT navigation aided Minimally invasive Posterior lateral decompression and facet fusion Minimally invasive Transforaminal lumbar interbody fusion for a 360 fusion Discectomy for decompression L3-4, L4-5, L5-S1 Placement of interbody graft L3-4, L4-5, L5-S1 Use of computer navigation for fusion Left Iliac crest autograft Local autogenous bone grafting Aspiration of bone marrow from the vertebral body pedicle L3 Use of bone graft extenders Surgeon: Dr. Young Ingredient Handler: Noble CATHERINE who is present throughout the entire the case persistence during positioning, dissection, exposure, visualization, and all crucial elements of the case as well as closure. Anesthesia: General anesthesia per Estimated blood loss: Approximately 700 mL, with 300 given back with cell saver Complications: None apparent Components implanted: K2M minimally invasive [place] pedicle screw system withscrews measuring 6.5 mm in diameter to rods one6mm peek interbody cage and one 8-13 pro lift expandable cage at L5S1 and one 10-15 pro lift expandable cage at L3-4 with 10 mL of osteo amp bio4 bone graft substitute and 30 mL of the BX bone fibers to supplement the local autogenous bone graft and bone marrow a spirate Disposition: To recovery room in good stable condition. OPERATIVE INDICATIONS The patient has had severe issues at their lower extremity in her lower back over the past several years with significant worsening over the past several months. Over the past few months the patient had pain at their back and their lower extremities. The patient is having severe radicular symptoms at their lower extremity with weakness. The patient is having significant pain in their back. They are unable to obtain any comfort. We did aggressive conservative treatment with medications therapy and interventional pain management however thery were not having any relief. The patient also showed evidence of a listhesis. Amber was evidence of severe stenosis at ultiople levels which correlated with his symptoms. The patient has been through conservative treatment. We discussed various treatment options including surgery, and the patient wishes to proceed with surgery We discussed the risk, patient's alternatives and benefits of surgery including but not limited to, risk of bleeding risk of infection, risk of need for further surgery, risk of decreased, loss of motion, muscle function, malunion nonunion, hardware failure, nerve damage, paralysis, heart attack, blindness and . They understood issues with the current pandemic and the possibility of exposure. OPERATIVE SUMMARY After discussing all the risks, patient alternatives and benefits at length, the patient elected to proceed with surgical intervention, signed informed consent, and presented for their procedure. The patient was seen and examined in the preoperative holding area and the surgical site was marked. The patient was given antibiotics and brought to the operating room. The patient was sedated and intubated by anesthesia in standard fashion. The patient was positioned on to the operating room table in a prone position on the appropriate frame which was well-padded and well molded. We were careful to pad any bony prominences and pressure points. We were careful to maintain the patient's cervical spine and good neutral alignment and position throughout. The patient was prepped and draped in a normal standard fashion. An appropriate timeout and keystone protocol performed. We were able to proceed with the surgery. The local wound area was infiltrated with local anesthetic. Over the right iliac crest I was able to make small stab incisions and establish a guidepin screw fixation to the iliac crest 2. I was able place the computer referencing device over the guidepins to establish an appropriate reference point for the Ziem CT navigation. We then were able to place patient in an appropriate drape and do a navigation spin for visualization and 3-D reconstruction of the lumbar spine. I was able utilize C-arm guidance and navigation to establish appropriate position over the pedicles bilaterally at the appropriate levelsL3-4, L4-5, L5-S1 . With the appropriate levels confirmed was able to make small incisions over the appropriate pedicle sites bilaterally. Utilizing the computer navigation device I was able to establish bony landmarks at the right iliac crest for a bony reference point for the navigation device. I was able to establish a Jamshidi needle over the lateral aspect of the pedicle and advanced the trocar into the pedicle being careful not to breech superiorly inferiorly medially or laterally using computer navigation device. Position was confirmed regularly with AP and lateral images on C-arm and with the computer navigation device at the appropriate levels bilaterally. I was able to establish the trocar into the pedicle appropriately into the posterior aspect of the vertebral body bilaterally at the appropriate levels. This was done at each of the pedicle positions and each of the vertebrae at L3- 4, L4-5, L5-S1. At the superior vertebrae of L3 I was able to take approximately 25 mL of bone aspiration for use later in the case to supplement the allograft and autograft bone. I was able place the guidewire into the trocar and into the vertebral body appropriately under C-arm guidance. Dissection was taken down over the wire to the appropriate starting position for the screw placed. The appropriate length screw was chosen, threaded over the guidewire and screwed appropriately into the pedicle and vertebral body under C- arm guidance in excellent alignment and position with good bony purchase. This is done at each of the screw sites at the appropriate levelsL3-4, L4-5, L5-S1 . With the screws intact I extended the incision to connect the screw hole sites on the left. I dissected down to establish access over the pars and lamina to the base of the spinous process. I was able to expose the facet joint. At the screw sit of S1 on the left, I had to dissect a ortion of the iliac crest to make space for the retractor. at the same time, I was able harvest a small prtion of iliac crest bone graft to supplement the local autogenous bone graft and the allograft for fusion. The capsule the facet was taken down and showed some facet arthrosis at the joint. I was able to use a combination of curettes and Kerrison rongeurs and a high-speed drill to take down the facet joint and do a facetectomy. I was able get excellent foraminal decompression and central decompression with undermining across midline to perform a laminectomy centrally and contralaterally. I was able get good central decompression. The ligamentum flavum was taken down to further decompress centrally and at bilateral neural foramen. I was able to expose the disc space and visualize the traversing nerve root. Note was made of some disc protrusion and disc herniation that was abutting the traversing nerve root at the level causing further compression of the nerve root. I was able to establish a annulotomy at the appropriate level protecting soft tissue and neural structures. Note was made of some disc desiccation at the disc. I performed a complete discectomy with accommodation of curettes and rasps and scrapers. I was able get good endplate preparation at the disc space. I sized for the appropriate size interbody spacer protecting the soft tissue and neural structures. The wound was copiously irrigated and suctioned dry. There is no evidence of any dural tear or leak. I was able to pack the disc space with local autogenous bone graft as well as a small amount of bone graft which was also placed into the interbody cage itself. Protecting the soft tissue structures and neural structures I was able place the interbody cage in good alignment and good position with good fit and fill at the interbody space. Position was confirmed with C-arm guidance. I used expandable cages at L5S1 and at L3-4 and a peek cage at L45 Good hemostasis maintained. There is no evidence of any dural tear or leak. The wound was irrigated and suctioned dry. With the hardware intact, intraoperative C-arm imaging was again taken which showed good alignment and position of the hardware at the appropriate levels L3- 4, L4-5, L5-S1. We were then able to measure, contour and place the rods and appropriate hardware bilaterally. I was able to place capcrews, tighten them down, and torque them with the torque screwdriver appropriately. With this intact I was able to place the local autogenous bone graft with additional bone graft enhancer as necessary into the posterior lateral gutters over the decorticated transverse processes and facet joints on the contralateral side. The remainder of the bone graft was placed over the facet joint on the contralateral side after taking down the facet joint capsule. With the bone graft intact, a stable construct, and good decompression at the appropriate levels, we were able to proceed with closure. Good hemostasis was maintained. There is no evidence of dural tear or leak. The fascia was closed for a watertight closure. he subcuticular tissue was closed with absorbable suture. The wound was cleaned and dried and dressed with the appropriate dressing. The drapes were broken down. The patient was gently rolled back onto their hospital bed being careful to maintain their cervical spine and good neutral alignment and position. They were woken up by anesthesia, extubated, and brought to the recovery room in good stable condition. The patient will be admitted to the hospital for appropriate postoperative care, medical management and monitoring. We will continue to follow them closely about the postoperative course.
[2021-07-18] MEDS: HYDROmorphone 0.5 MG/0.5 ML SYRINGE IVP PRN ×3 (14:23→15:09)
[2021-07-18] MEDS ORDERED: METOPROLOL TARTRATE 5 MG/5 ML VIAL IVP ONE ×2 (14:34→14:40)
[2021-07-18 14:37] LABS: Glucose,Whole Blood 183 mg/dL (75-99)
[2021-07-18 15:40] LABS: Basophils # (A) 0.1 k/uL (0-0.2); Basophils % (A) 0 %; Eosinophils % (A) 0 %; HCT 33.5 % (39.0-53.0); HGB 10.3 gm/dL (13.0-17.5); Lymphocytes # (A) 0.8 k/uL (1.0-4.8); Lymphocytes % (A) 5 %; MCH 30.3 pg (25.0-35.0); MCHC 30.8 g/dL (31.0-37.0); MCV 98.5 fL (80.0-100.0); Mean Platelet Volume 7.1; Monocytes # (A) 0.6 k/uL (0-1.0); Monocytes % (A) 4 %; Neutrophils # (A) 15.5 k/uL (1.3-7.7); Neutrophils % (A) 91 %; Platelet Count 286 k/uL (150-450); RDW 13.5 % (11.5-15.5); WBC 17.1 k/uL (3.8-10.6)
[2021-07-18 15:51] LABS: ALT 16 U/L (4-49); AST 24 U/L (17-59); African American GFR (CKD) 47 (>60 ml/min/1.73 sqM); Albumin 3.9 g/dL (3.5-5.0); Albumin/Globulin Ratio 1.5; Alkaline Phosphatase 66 U/L (38-126); Anion Gap 9 mmol/L; Blood Urea Nitrogen 21 mg/dL (9-20); Calcium 8.5 mg/dL (8.4-10.2); Carbon Dioxide 23 mmol/L (22-30); Chloride 104 mmol/L (98-107); Globulin 2.6 g/dL; Glucose 162 mg/dL (74-99); Non-African American GFR(CKD) 41 (>60 ml/min/1.73 sqM); Potassium 5.2 mmol/L (3.5-5.1); Sodium 136 mmol/L (137-145); Total Bilirubin 0.5 mg/dL (0.2-1.3); Total Protein 6.5 g/dL (6.3-8.2)
--- NOTE | 2021-07-18 16:05 | FL ---
Fluoroscopy HISTORY: Pain 25 seconds fluoroscopy time supplied to the referring clinician. 2 intraoperative C-arm images docum ent the procedure. See dictated report from orthopedic surgery.
[2021-07-18 16:38] LABS: Glucose,Whole Blood 148 mg/dL (75-99)
--- NOTE | 2021-07-18 16:40 | P.CONS ---
History of Present Illness - Reason for Consult Consult date: 07/18/21 Medical management Requesting physician: Monica Young - Chief Complaint Post lumbar spine surgery with laminectomy and decompression of the L3-L4,. - History of Present Illness HISTORY OF PRESENT ILLNESS 70-year-old male one of Dr. Marcos Clark's patient with multiple medical problem was known to have history of obstructive sleep apnea on BiPAP seen Dr. Singh regular basis also had history of asthma and active fibrillation seen Dr. EDILIA leach and has been on anticoagulation. Patient had developed severe lower back pain and discomfort for the last 2 years and has done conservative management along with pain management and epidural injection. Patient was seen by Dr. Young and schedule elective laminectomy and decompression of the lumbar spine. Patient ended up coming to the hospital today and have elective surgery successfully is up in the floor still waking up still have slight bit pain otherwise doing well. His medication will be finalized patient will have his BiPAP with him today to use through the night. He is not having any wheezes or any asthma flareup at this time his A. fib with pulse rates under control and patient he is hemodynamically stable. REVIEW OF SYSTEMS Constitutional: No fever, no chills, no night sweats. No weight change. No weakness, fatigue or lethargy. No daytime sleepiness. EENT: No headache. No blurred vision or double vision, no loss of vision. No loss of Hearing, no ringing in the ears, no dizziness. No nasal drainage or congestion. No epistaxis. No sore throat. Lungs: History of asthma, obstructive sleep apnea on BiPAP, but he is complaining of No shortness of breath, cough, no sputum production. No wheezing. Cardiovascular: Has history of A. fib and atherosclerotic heart disease and he complained of No chest pain, no lower extremity edema. No palpitations. No paroxysmal nocturnal dyspnea. No orthopnea. No lightheadedness or dizziness. No syncopal episodes. Abdominal: No abdominal pain. No nausea, vomiting. No diarrhea. No cons tipation. No bloody or tarry stools.. No loss of appetite. Genitourinary: No dysuria, increased frequency, urgency. No urinary retention. Musculoskeletal: No myalgias. No muscle weakness, no gait dysfunction, no frequent falls. No back pain. No neck pain. Integumentary: No wounds, no lesions. No rash or pruritus. No unusual bruising. No change in hair or nails. Neurologic: No aphasia. No facial droop. No change in mentation. No head injury. No headache. No paralysis. No paresthesia. Psychiatric: No depression. No anxiety. No mood swings. Endocrine: No abnormal blood sugars. No weight change. No excessive sweating or thirst. No cold intolerance. SOCIAL HISTORY He quit smoking in 1999 he is to smoke half to 1 pack a day for 30 years, no alcohol abuse, no drug use, patient is and lives home alone. FAMILY HISTORY Patient has 3 children are all living and well, has 3 siblings with no major medical problem. His father still living age 89 with prostate cancer, his mother dying at age 84 from CVA. PHYSICAL EXAMINATION Gen: This is mildly obese gentleman has oxygen on laying in bed easy to to wake up at the time in no acute respiratory distress. HEENT: Head is atraumatic, normocephalic. Pupils equal, round. Sclerae is anicteric. NECK: Supple. No JVD. No lymphadenopathy. No thyromegaly. LUNGS: Decreased breath some bilaterally with fine rhonchi no crackles or wheezes. HEART: Irregular rate and rhythm, S1, S2 positive S3 No murmur. ABDOMEN: Soft. Bowel sounds are present. No masses. No tenderness. EXTREMITIES: Trace edema he skinned his left knee with slight bruise from recent injury with no sign of infection. NEUROLOGICAL: Patient is awake, alert and oriented x3. Cranial nerves 2 through 12 are grossly intact. ASSESSMENT AND PLAN 1. Post lumbar spine surgery: Patient is doing well resume home meds, incentive spirometry, DVT and GI prophylaxis protocol be done, we watch patient pain and hemodynamic st 2. A. fib: Pulse rate is under control currently we'll resume metoprolol Tatrate 12.5 mg daily patient was on Eliquis 5 mg twice a day which will be started tomorrow if possible. 3 asthma/COPD: Patient is using BiPAP, is on oxygen currently, seen pulmonary and has been on Combivent along with Singulair and Symbicort. Medication will be resume Will add incentive spirometry and watch for any atelectasis. 3 history of hypertension: Continue patient on amlodipine 10 mg a day, metoprolol 12.5 mg daily and irbesartan 300 mg daily at bedtime. 3 type 2 diabetes: Has been on metformin 500 mg daily Accu-Chek with sliding- scale's coverage will be done. 4 hyperlipidemia: Remain on Crestor 5 mg a day. 5 chronic history of neuropathy: Most likely from spinal stenosis has been on gabapentin 600 mg twice a day. 6 chronic pain management: Patient has been on tramadol and gabapentin. 7 obstructive sleep apnea: Patient has been using BiPAP regular basis. 8 GI prophylaxis: Patient will be on Pepcid 20 mg twice a day. 9 DVT prophylaxis: Resume Eliquis. Dr. Young thank you much for the consult if I can be any further help to please let me know. Past Medical History Past Medical History: Atrial Fibrillation, Asthma, Diabetes Mellitus, GERD/Reflux, Hyperlipidemia, Hypertension, Osteoarthritis (OA), Prostate Disorder, Sleep Apnea/CPAP/BIPAP Additional Past Medical History / Comment(s): enlarged prostate, uses BIPAP History of Any Multi-Drug Resistant Organisms: None Reported Past Surgical History: Adenoidectomy, Bariatric Surgery, Orthopedic Surgery, Tonsillectomy Additional Past Surgical History / Comment(s): uvula surgery, lap band, left shoulder rotator cuff repair Past Anesthesia/Blood Transfusion Reactions: No Reported Reaction, Family History of Problems w/ Anesthesia Additional Past Anesthesia/Blood Transfusion Reaction / Comm: mother-had problem with anesthesia 30 yrs ago-not sure what Smoking Status: Former smoker - Past Family History Father Family Medical History: Cancer Additional Family Medical History / Comment(s): skin and throat cancer Mother Family Medical History: Diabetes Mellitus Brother(s) Family Medical History: No Reported History Sister(s) Family Medical History: Diabetes Mellitus Son(s) Family Medical History: No Reported History Medications and Allergies Home Medications Medication Instructions Recorded Confirmed Type traMADol HCL [Ultram] 100 mg PO TID 08/28/15 07/18/21 History Gabapentin 600 mg PO BID 11/10/16 07/18/21 History Rosuvastatin Calcium [Crestor] 5 mg PO HS 03/06/17 07/18/21 History amLODIPine [Norvasc] 10 mg PO DAILY 03/06/17 07/18/21 History Montelukast [Singulair] 10 mg PO HS 05/22/18 07/18/21 History metFORMIN HCL [Glucophage] 500 mg PO DAILY 05/22/18 07/18/21 History Apixaban [Eliquis] 5 mg PO BID 06/20/20 07/18/21 History Metoprolol Tartrate [Lopressor] 12.5 mg PO QAM 06/20/20 07/18/21 History Ipratropium/Albuterol Sulfate 1 puff INHALATION BID 07/21/20 07/18/21 History [Combivent Respimat Inhaler] Irbesartan [Avapro] 300 mg PO HS 07/21/20 07/18/21 History hydrALAZINE HCL 25 mg PO TID 07/21/20 07/18/21 History Budesonide-Formot 160-4.5 Mcg 2 puff INHALATION BID 07/16/21 07/18/21 History [Symbicort 160-4.5 Mcg Inhaler] Allergies Allergy/AdvReac Type Severity Reaction Status Date / Time No Known Allergies Allergy Verified 07/18/21 07:14 Physical Exam Vitals: Vital Signs Temp Pulse Resp BP Pulse Ox 07/18/21 16:15 95 07/18/21 16:14 93 L 07/18/21 16:06 97.4 F L 93 17 126/66 64 L 07/18/21 15:45 79 16 125/66 96 07/18/21 15:30 82 16 123/69 97 07/18/21 15:15 91 16 132/72 97 07/18/21 15:00 89 16 134/67 96 07/18/21 14:45 87 16 130/68 98 07/18/21 14:30 120 H 16 172/72 98 07/18/21 14:15 113 H 16 141/65 98 07/18/21 14:08 97.2 F L 115 H 16 142/61 98 07/18/21 07:41 98.1 F 86 18 154/75 96 Intake and Output 07/18/21 07/18/21 07/18/21 06:59 14:59 22:59 Intake Total 4101 Output Total 1000 100 Balance 3101 -100 Intake: IV 4101 Output: Urine 300 100 Estimated Blood Loss 700 Other: Weight 129.5 kg Results CBC & Chem 7: 07/18/21 15:10 07/18/21 15:10 Labs: Abnormal Lab Results - Last 24 Hours (Table) 1107/18/21 07/18/21 Range/Units 07:22 14:36 15:10 WBC 17.1 H (3.8-10.6) k/uL RBC 3.40 L (4.30-5.90) m/uL Hgb 10.3 L (13.0-17.5) gm/dL Hct 33.5 L (39.0-53.0) % MCHC 30.8 L (31.0-37.0) g/dL Neutrophils # 15.5 H (1.3-7.7) k/uL Lymphocytes # 0.8 L (1.0-4.8) k/uL Sodium (137-145) mmol/L Potassium (3.5-5.1) mmol/L BUN (9-20) mg/dL Creatinine (0.66-1.25) mg/dL Glucose (74-99) mg/dL POC Glucose (mg/dL) 141 H 183 H (75-99) mg/dL 07/18/21 Range/Units 15:10 WBC (3.8-10.6) k/uL RBC (4.30-5.90) m/uL Hgb (13.0-17.5) gm/dL Hct (39.0-53.0) % MCHC (31.0-37.0) g/dL Neutrophils # (1.3-7.7) k/uL Lymphocytes # (1.0-4.8) k/uL Sodium 136 L (137-145) mmol/L Potassium 5.2 H (3.5-5.1) mmol/L BUN 21 H (9-20) mg/dL Creatinine 1.67 H (0.66-1.25) mg/dL Glucose 162 H (74-99) mg/dL POC Glucose (mg/dL) (75-99) mg/dL
[2021-07-18] MEDS: CYCLOBENZAPRINE 10 MG TAB PO PRN (16:44)
[2021-07-18] MEDS: hydrALAZINE HCL 25 MG TAB PO SCH ×2 (16:44→21:56)
[2021-07-18] MEDS: ceFAZolin 3 GM in SODIUM CHLORIDE 0.9% 100 ML IVPB SCH (16:44)
[2021-07-18] MEDS: SODIUM CHLORIDE 0.9% 1,000 ML IV SCH (16:47)
[2021-07-18] MEDS: HYDROcodone/APAP 5-325MG 1 EACH TAB PO PRN ×2 (17:47→22:05)
[2021-07-18] MEDS: IPRATROPIUM-ALBUTEROL 3 ML NEB INHALATION SCH (19:32)
[2021-07-18] MEDS: SYMBICORT 160-4.5 MCG INHALER INHALATION SCH (19:32)
[2021-07-18 19:36] LABS: Glucose,Whole Blood 166 mg/dL (75-99)
[2021-07-18] MEDS: GABAPENTIN 300 MG CAP PO SCH (21:55)
[2021-07-18] MEDS: MONTELUKAST 10 MG TAB PO SCH (21:55)
[2021-07-18] MEDS: ATORVASTATIN 10 MG TAB PO SCH (21:55)
[2021-07-18] MEDS: LOSARTAN 50 MG TAB PO SCH (21:55)
[2021-07-19] MEDS: ceFAZolin 3 GM in SODIUM CHLORIDE 0.9% 100 ML IVPB SCH (00:01)
[2021-07-19] MEDS: diazePAM 5 MG TAB PO PRN ×2 (00:05→09:48)
[2021-07-19] MEDS: CYCLOBENZAPRINE 10 MG TAB PO PRN ×3 (00:05→21:29)
[2021-07-19] MEDS: SODIUM CHLORIDE 0.9% 1,000 ML IV SCH ×2 (04:58→18:17)
[2021-07-19] MEDS: HYDROcodone/APAP 5-325MG 1 EACH TAB PO PRN ×3 (05:13→21:29)
[2021-07-19 07:13] LABS: Glucose,Whole Blood 166 mg/dL (75-99)
[2021-07-19] MEDS: IPRATROPIUM-ALBUTEROL 3 ML NEB INHALATION SCH ×2 (08:28→19:16)
[2021-07-19] MEDS: SYMBICORT 160-4.5 MCG INHALER INHALATION SCH ×2 (08:28→19:17)
[2021-07-19 09:38] LABS: Basophils # (A) 0.06 X 10*3/uL (0.00-0.10); Basophils % (A) 0.5 %; Eosinophils # (A) 0.26 X 10*3/uL (0.04-0.35); Eosinophils % (A) 2.2 %; HGB 9.6 g/dL (13.0-17.0); Lymphocytes # (A) 0.87 X 10*3/uL (0.90-5.00); Lymphocytes % (A) 7.4 %; MCH 30.6 pg (27.0-32.0); MCV 98.7 fL (80.0-97.0); Mean Platelet Volume 9.3 fL (9.5-12.2); Monocytes # (A) 1.04 X 10*3/uL (0.20-1.00); Monocytes % (A) 8.8 %; Neutrophils # (A) 9.45 X 10*3/uL (1.80-7.70); Neutrophils % (A) 80.3 %; Platelet Count 248 X 10*3/uL (140-440); RBC 3.14 X 10*6/uL (4.40-5.60); RDW 14.1 % (11.5-14.5); WBC 11.78 X 10*3/uL (4.50-10.00)
[2021-07-19] MEDS: hydrALAZINE HCL 25 MG TAB PO SCH ×3 (09:41→21:14)
[2021-07-19] MEDS: GABAPENTIN 300 MG CAP PO SCH ×2 (09:41→21:13)
[2021-07-19] MEDS: METOPROLOL TARTRATE 12.5 MG TAB PO SCH (09:41)
[2021-07-19] MEDS: SENNOSIDES-DOCUSATE SODIUM 1 EACH TAB PO SCH (09:41)
[2021-07-19] MEDS: metFORMIN 500 MG TAB PO SCH (09:42)
[2021-07-19] MEDS: FAMOTIDINE 20 MG TAB PO SCH (09:42)
[2021-07-19] MEDS: amLODIPine 10 MG TAB PO SCH (09:42)
[2021-07-19] MEDS: INSULIN ASPART (NovoLOG) 100 UNIT/ML VIAL SQ SCH ×4 (09:42→21:13)
--- NOTE | 2021-07-19 10:50 | P.PN ---
Progress Note - Text Progress Note Date: 07/19/21 Postoperative day #1 Patient is seen and examined today at bedside. The patient has some pain around the surgical site as expected. Pain is being controlled with medication. He was having some trouble last night and was also taking Valium last night which seemed to help. He is sitting up in a chair this morning. Physical Exam Afebrile with stable vital signs Abdomen is soft nontender. Chest has good excursion deep and space expiration The incision site is clean dry and intact. No erythema there is no purulence. Extremities have not had neurologic change from prior to surgery. He is able to lift his legs up he has good strength with flexion and extension at his hips knees and ankles and feet. Calves and thighs were soft nontender without evidence of DVT. Assessment/Plan Postoperative day #1 status post minimally invasive decompression fusion L34 L4 5 and L5-S1 for severe spinal stenosis with degenerative disc disease multiple medical issues being managed by medicine service Patient is progressing as expected from the surgery. he has been able already to get out of bed with assistance and sit in a chair. His Talbot has been removed and hopefully he'll be able to void on his own. We will continue to increase the patient's mobilization with therapy. We will continue pain control with oral or IV medications. I asked him to try to wean off his Valium if he is able as he has multiple medications onboard already. We'll continue to follow patient closely. he'll likely be here until Friday but possibly tomorrow
[2021-07-19 11:32] LABS: Glucose,Whole Blood 200 mg/dL (75-99)
[2021-07-19] MEDS: polyethylene glycoL 3350 17 GM POWD.PACK PO SCH (11:57)
--- NOTE | 2021-07-19 13:38 | P.PN ---
Subjective Progress Note Date: 07/19/21 HISTORY OF PRESENT ILLNESS 70-year-old male one of Dr. Marcos Clark's patient with multiple medical problem was known to have history of obstructive sleep apnea on BiPAP seen Dr. Singh regular basis also had history of asthma and active fibrillation seen Dr. EDILIA leach and has been on anticoagulation. Patient had developed severe lower back pain and discomfort for the last 2 years and has done conservative management along with pain management and epidural injection. Patient was seen by Dr. Young and schedule elective laminectomy and decompression of the lumbar spine. Patient ended up coming to the hospital today and have elective surgery successfully is up in the floor still waking up still have slight bit pain otherwise doing well. His medication will be finalized patient will have his BiPAP with him today to use through the night. He is not having any wheezes or any asthma flareup at this time his A. fib with pulse rates under control and patient he is hemodynamically stable. 07/19: Patient states that he is feeling so-so today. He is found sitting up in a chair. He has been afebrile, heart rate 118, blood pressure 104/59, pulse ox 94% on 3 L nasal cannula. WBC 11.7, hemoglobin 9.6, platelet count 248. Blood sugars running between 166 and 200. Patient is to work with PT and OT today, no plan for discharge today. Also plan to wean patient off oxygen, he is not oxygen dependent at home. REVIEW OF SYSTEMS Constitutional: No fever, no chills, no night sweats. No weight change. No weakness, fatigue or lethargy. No daytime sleepiness. EENT: No headache. No blurred vision or double vision, no loss of vision. No loss of Hearing, no ringing in the ears, no dizziness. No nasal drainage or congestion. No epistaxis. No sore throat. Lungs: History of asthma, obstructive sleep apnea on BiPAP, but he is c omplaining of No shortness of breath, cough, no sputum production. No wheezing. Cardiovascular: Has history of A. fib and atherosclerotic heart disease, denies chest pain, no lower extremity edema. No palpitations. No paroxysmal nocturnal dyspnea. No orthopnea. No lightheadedness or dizziness. No syncopal episodes. Abdominal: No abdominal pain. No nausea, vomiting. No diarrhea. No constip ation. No bloody or tarry stools.. No loss of appetite. Genitourinary: No dysuria, increased frequency, urgency. No urinary retention. Musculoskeletal: No myalgias. No muscle weakness, no gait dysfunction, no frequent falls. No back pain. No neck pain. Integumentary: No wounds, no lesions. No rash or pruritus. No unusual bruising. No change in hair or nails. Neurologic: No aphasia. No facial droop. No change in mentation. No head injury. No headache. No paralysis. No paresthesia. Psychiatric: No depression. No anxiety. No mood swings. Endocrine: No abnormal blood sugars. No weight change. No excessive sweating or thirst. No cold intolerance. PHYSICAL EXAMINATION Gen: This is obese 70-year-old male. He is found sitting in a recliner and appears to be somewhat uncomfortable secondary to pain. He is currently on O2 at 3 L nasal cannula. HEENT: Head is atraumatic, normocephalic. Pupils equal, round. Sclerae is anicteric. NECK: Supple. No JVD. No lymphadenopathy. No thyromegaly. LUNGS: Decreased breath some bilaterally with fine rhonchi no crackles or wheezes. HEART: Irregular rate and rhythm, S1, S2 positive S3 No murmur. ABDOMEN: Soft. Bowel sounds are present. No masses. No tenderness. EXTREMITIES: Trace edema he skinned his left knee with slight bruise from recent injury with no sign of infection. NEUROLOGICAL: Patient is awake, alert and oriented x3. Cranial nerves 2 through 12 are grossly intact. ASSESSMENT AND PLAN 1. Post lumbar spine surgery: Patient is doing well resume home meds, incentive spirometry, DVT and GI prophylaxis protocol be done, we watch patient pain and hemodynamic st 2. Paroxysmal A. fib: Pulse rate is under control currently we'll resume metoprolol Tatrate 12.5 mg daily patient was on Eliquis 5 mg twice a day. 3. Mild intermittent asthma/COPD: Patient is using BiPAP, is on oxygen currently, seen pulmonary and has been on Combivent along with Singulair and Symbicort. Medication will be resume Will add incentive spirometry and watch for any atelectasis. 4. History of hypertension: Continue patient on amlodipine 10 mg a day, metoprolol 12.5 mg daily and irbesartan 300 mg daily at bedtime. 5. Type 2 diabetes: Has been on metformin 500 mg daily Accu-Chek with sliding- scale's coverage will be done. 6. Hyperlipidemia: Remain on Crestor 5 mg a day. 7. Chronic history of neuropathy: Most likely from spinal stenosis has been on gabapentin 600 mg twice a day. 8. Chronic pain management: Patient has been on tramadol and gabapentin. 9. Obstructive sleep apnea: Patient has been using BiPAP regular basis. 10. GI prophylaxis: Patient will be on Pepcid 20 mg twice a day. 11. DVT prophylaxis: Resume Eliquis. Dr. Young thank you much for the consult if I can be any further help to please let me know. DISCHARGE PLAN Home with homecare most likely Impression and plan of care have been directed as dictated by the signing physician. Shellie Meneses nurse practitioner acting as scribe for signing physician. Objective - Vital Signs Vital signs: Vital Signs Temp 99.2 F 07/19/21 08:00 Pulse 118 H 07/19/21 08:00 Resp 18 07/19/21 08:00 BP 104/59 07/19/21 08:00 Pulse Ox 94 L 07/19/21 08:00 Intake & Output 07/18/21 07/19/21 07/19/21 18:59 06:59 18:59 Intake Total 4101 1700 Output Total 1200 1300 Balance 2901 400 Weight 129.5 kg Intake: IV 4101 Intake, IV Titration 1100 Amount Sodium Chloride 0.9% 1, 900 000 ml @ 75 mls/hr IV . [id number] [facility] Rx#:[id number] ceFAZolin 3 gm In Sodium 200 Chloride 0.9% 100 ml @ 200 mls/hr IVPB ONCE PRN Rx#:[id number] Oral 600 Output: Urine 500 1300 Estimated Blood Loss 700 Other: Voiding Method Indwelling Catheter Indwelling Catheter - Labs CBC & Chem 7: 07/19/21 05:30 07/18/21 15:10 Labs: Abnormal Lab Results - Last 24 Hours (Table) 07/18/21 07/18/21 07/18/21 Range/Units 14:36 15:10 15:10 WBC 17.1 H (3.8-10.6) k/uL RBC 3.40 L (4.30-5.90) m/uL Hgb 10.3 L (13.0-17.5) gm/dL Hct 33.5 L (39.0-53.0) % MCV (80.0-97.0) fL MCHC 30.8 L (31.0-37.0) g/dL MPV (9.5-12.2) fL Immature Gran # (0.00-0.04) X 10*3/uL Neutrophils # 15.5 H (1.3-7.7) k/uL Lymphocytes # 0.8 L (1.0-4.8) k/uL Monocytes # (0.20-1.00) X 10*3/uL Sodium 136 L (137-145) mmol/L Potassium 5.2 H (3.5-5.1) mmol/L BUN 21 H (9-20) mg/dL Creatinine 1.67 H (0.66-1.25) mg/dL Glucose 162 H (74-99) mg/dL POC Glucose (mg/dL) 183 H (75-99) mg/dL 07/18/21 07/18/21 07/19/21 Range/Units 16:35 19:34 05:30 WBC 11.78 H (3.8-10.6) k/uL RBC 3.14 L (4.30-5.90) m/uL Hgb 9.6 L (13.0-17.5) gm/dL Hct 31.0 L (39.0-53.0) % MCV 98.7 H (80.0-97.0) fL MCHC 31.0 L (31.0-37.0) g/dL MPV 9.3 L (9.5-12.2) fL Immature Gran # 0.10 H (0.00-0.04) X 10*3/uL Neutrophils # 9.45 H (1.3-7.7) k/uL Lymphocytes # 0.87 L (1.0-4.8) k/uL Monocytes # 1.04 H (0.20-1.00) X 10*3/uL Sodium (137-145) mmol/L Potassium (3.5-5.1) mmol/L BUN (9-20) mg/dL Creatinine (0.66-1.25) mg/dL Glucose (74-99) mg/dL POC Glucose (mg/dL) 148 H 166 H (75-99) mg/dL 07/19/21 Range/Units 06:53 WBC (3.8-10.6) k/uL RBC (4.30-5.90) m/uL Hgb (13.0-17.5) gm/dL Hct (39.0-53.0) % MCV (80.0-97.0) fL MCHC (31.0-37.0) g/dL MPV (9.5-12.2) fL Immature Gran # (0.00-0.04) X 10*3/uL Neutrophils # (1.3-7.7) k/uL Lymphocytes # (1.0-4.8) k/uL Monocytes # (0.20-1.00) X 10*3/uL Sodium (137-145) mmol/L Potassium (3.5-5.1) mmol/L BUN (9-20) mg/dL Creatinine (0.66-1.25) mg/dL Glucose (74-99) mg/dL POC Glucose (mg/dL) 166 H (75-99) mg/dL
[2021-07-19 15:36] LABS: African American GFR (CKD) 35.9 (60.0-200.0); Anion Gap 13.3 mmol/L (4.00-12.00); Calcium 8.4 mg/dL (8.7-10.3); Carbon Dioxide 19.7 mmol/L (21.6-31.8); Potassium 4.8 mmol/L (3.5-5.5)
[2021-07-19 16:37] LABS: Glucose,Whole Blood 190 mg/dL (75-99)
[2021-07-19 20:33] LABS: Glucose,Whole Blood 191 mg/dL (75-99)
[2021-07-19] MEDS: MONTELUKAST 10 MG TAB PO SCH (21:13)
[2021-07-19] MEDS: ATORVASTATIN 10 MG TAB PO SCH (21:14)
[2021-07-19] MEDS: LOSARTAN 50 MG TAB PO SCH (21:14)
[2021-07-19] MEDS: APIXABAN 5 MG TAB PO SCH (21:14)
[2021-07-20] MEDS: SODIUM CHLORIDE 0.9% 1,000 ML IV SCH (05:45)
[2021-07-20 06:48] LABS: Glucose,Whole Blood 140 mg/dL (75-99)
[2021-07-20] MEDS: INSULIN ASPART (NovoLOG) 100 UNIT/ML VIAL SQ SCH ×4 (07:29→20:29)
[2021-07-20] MEDS: GABAPENTIN 300 MG CAP PO SCH ×2 (07:32→20:29)
[2021-07-20] MEDS: SENNOSIDES-DOCUSATE SODIUM 1 EACH TAB PO SCH (07:32)
[2021-07-20] MEDS: FAMOTIDINE 20 MG TAB PO SCH (07:32)
[2021-07-20] MEDS: metFORMIN 500 MG TAB PO SCH (07:33)
[2021-07-20] MEDS: amLODIPine 10 MG TAB PO SCH (07:33)
[2021-07-20] MEDS: APIXABAN 5 MG TAB PO SCH ×2 (07:33→20:28)
[2021-07-20] MEDS: METOPROLOL TARTRATE 12.5 MG TAB PO SCH (07:33)
[2021-07-20] MEDS: polyethylene glycoL 3350 17 GM POWD.PACK PO SCH (07:33)
[2021-07-20] MEDS: hydrALAZINE HCL 25 MG TAB PO SCH ×3 (07:33→20:28)
--- NOTE | 2021-07-20 07:47 | P.PN ---
Progress Note - Text Progress Note Date: 07/20/21 Postoperative day #2 Patient is seen and examined today at bedside. The patient has some pain around the surgical site as expected. He is having difficulty with getting in and out of bed and is still requiring 2 person max assist. He says he is doing better than yesterday. Pain is being controlled with medication. He has been able to void freely. He is tolerating his diet adequately. He was coughing up some sputum last night and this morning but he says he does this each morning. It is nonpurulent. It is nonbloody. He is breathing comfortably. Physical Exam Afebrile with stable vital signs Abdomen is soft nontender. Chest has good excursion deep and space expiration The incision site is clean dry and intact. No erythema there is no purulence. The area is essentially clear. Extremities have not had neurologic change from prior to surgery. He has sustained dorsal flexion and EHL on his legs. He has significant difficulty with trying to mobilize and an out of bed and rolling over at this point but he feels it is improving. Calves and thighs were soft nontender without evidence of DVT. Assessment/Plan Postoperative day #2 status post minimally invasive decompression fusion L3 4 L4 5 L5-S1 for his severe spinal stenosis and central disc disease lower extremity radiculopathy Patient is progressing as expected from the surgery. His mobilization is coming somewhat slowly. Some of that is due to his size as well as the magnitude of the operation. He is making progress nonetheless and is mobilizing better. He is voiding freely and tolerating his diet adequately. He is not yet had a bowel movement. His pains adequately controlled and he is transitioning over to oral medications. He had some spitting up of sputum is not having any fevers. Sputum is tannish without any evidence of purulence. He says he does this every morning even at home. He does not seem to have any specific pulmonary process and he does not seem to be specifically nauseous. We will continue to monitor this. The patient is making progress but he may need some help at home versus the consideration of [facility] before home. We will have case management see him in preparation in case we need assistance before returning home. If he continues to make progress Zaira has from yesterday to today there is potential for him for discharge home Friday or Friday We will continue to increase the patient's mobilization with therapy. We will continue pain control with oral or IV medications. We'll continue to follow patient closely.
[2021-07-20] MEDS: SYMBICORT 160-4.5 MCG INHALER INHALATION SCH ×2 (08:36→19:45)
[2021-07-20] MEDS: IPRATROPIUM-ALBUTEROL 3 ML NEB INHALATION SCH ×2 (08:36→19:45)
[2021-07-20 10:34] LABS: HCT 34.2 % (39.0-53.0); HGB 10.7 gm/dL (13.0-17.5); MCH 30.7 pg (25.0-35.0); MCHC 31.4 g/dL (31.0-37.0); MCV 97.8 fL (80.0-100.0); Mean Platelet Volume 7.4; Platelet Count 262 k/uL (150-450); RBC 3.49 m/uL (4.30-5.90); RDW 13.2 % (11.5-15.5); WBC 15.7 k/uL (3.8-10.6)
[2021-07-20 10:57] LABS: ALT 10 U/L (4-49); AST 38 U/L (17-59); African American GFR (CKD) 44 (>60 ml/min/1.73 sqM); Albumin/Globulin Ratio 1.1; Alkaline Phosphatase 62 U/L (38-126); Anion Gap 8 mmol/L; Blood Urea Nitrogen 20 mg/dL (9-20); Calcium 8.8 mg/dL (8.4-10.2); Carbon Dioxide 20 mmol/L (22-30); Chloride 103 mmol/L (98-107); Globulin 2.8 g/dL; Glucose 266 mg/dL (74-99); Non-African American GFR(CKD) 38 (>60 ml/min/1.73 sqM); Potassium 5.2 mmol/L (3.5-5.1); Sodium 131 mmol/L (137-145); Total Bilirubin 0.8 mg/dL (0.2-1.3); Total Protein 5.8 g/dL (6.3-8.2)
[2021-07-20 12:01] LABS: Glucose,Whole Blood 238 mg/dL (75-99)
[2021-07-20] MEDS: CYCLOBENZAPRINE 10 MG TAB PO PRN ×2 (12:48→20:35)
--- NOTE | 2021-07-20 13:32 | P.PN ---
Subjective Progress Note Date: 07/20/21 HISTORY OF PRESENT ILLNESS 70-year-old male one of Dr. Marcos Clark's patient with multiple medical problem was known to have history of obstructive sleep apnea on BiPAP seen Dr. Singh regular basis also had history of asthma and active fibrillation seen Dr. EDILIA leach and has been on anticoagulation. Patient had developed severe lower back pain and discomfort for the last 2 years and has done conservative management along with pain management and epidural injection. Patient was seen by Dr. Young and schedule elective laminectomy and decompression of the lumbar spine. Patient ended up coming to the hospital today and have elective surgery successfully is up in the floor still waking up still have slight bit pain otherwise doing well. His medication will be finalized patient will have his BiPAP with him today to use through the night. He is not having any wheezes or any asthma flareup at this time his A. fib with pulse rates under control and patient he is hemodynamically stable. 07/19: Patient states that he is feeling so-so today. He is found sitting up in a chair. He has been afebrile, heart rate 118, blood pressure 104/59, pulse ox 94% on 3 L nasal cannula. WBC 11.7, hemoglobin 9.6, platelet count 248. Blood sugars running between 166 and 200. Patient is to work with PT and OT today, no plan for discharge today. Also plan to wean patient off oxygen, he is not oxygen dependent at home. 07/20: Patient is now off oxygen with pulse ox of 94%, he has been afebrile, heart rate low 100s, blood pressure 131/64. The blood work reveals WBC 15.7, hemoglobin 10.7, platelet count 262. Sodium 131, potassium 5.2, chloride 103, CO2 20, BUN 20 creatinine 1.78. Blood sugars are running between 140 and 238. IV fluids will be discontinued. Patient has worked with PT and OT but needs significant assistance with recommendations for subacute rehab. managed care manager is following. REVIEW OF SYSTEMS Constitutional: No fever, no chills, no night sweats. No weight change. Noted weakness, fatigue or lethargy. No daytime sleepiness. EENT: No headache. No blurred vision or double vision, no loss of vision. No loss of Hearing, no ringing in the ears, no dizziness. No nasal drainage or congestion. No epistaxis. No sore throat. Lungs: History of asthma, obstructive sleep apnea on BiPAP, but he is complaining of No shortness of breath, cough, no sputum production. No wheezing. Cardiovascular: Has history of A. fib and atherosclerotic heart disease, denies chest pain, no lower extremity edema. No palpitations. No paroxysmal nocturnal dyspnea. No orthopnea. No lightheadedness or dizziness. No syncopal episodes. Abdominal: No abdominal pain. No nausea, vomiting. No diarrhea. No constipation. No bloody or tarry stools.. No loss of appetite. Genitourinary: No dysuria, increased frequency, urgency. No urinary retention. Musculoskeletal: No myalgias. Noted muscle weakness, noted gait dysfunction, no frequent falls. No back pain. No neck pain. Integumentary: No wounds, no lesions. No rash or pruritus. No unusual bruising. No change in hair or nails. Neurologic: No aphasia. No facial droop. No change in mentation. No head injury. No headache. No paralysis. No paresthesia. Psychiatric: No depression. No anxiety. No mood swings. Endocrine: No abnormal blood sugars. No weight change. No excessive sweating or thirst. No cold intolerance. PHYSICAL EXAMINATION Gen: This is obese 70-year-old male. He is found sitting in a recliner and appears to be in no acute distress. Patient is off oxygen. HEENT: Head is atraumatic, normocephalic. Pupils equal, round. Sclerae is anicteric. NECK: Supple. No JVD. No lymphadenopathy. No thyromegaly. LUNGS: Decreased breath some bilaterally with fine rhonchi no crackles or wheezes. HEART: Irregular rate and rhythm, S1, S2 positive S3 No murmur. ABDOMEN: Soft. Bowel sounds are present. No masses. No tenderness. EXTREMITIES: Trace edema he skinned his left knee with slight bruise from recent injury with no sign of infection. NEUROLOGICAL: Patient is awake, alert and oriented x3. Cranial nerves 2 through 12 are grossly intact. ASSESSMENT AND PLAN 1. Post lumbar spine surgery: Patient is doing well resume home meds, incentive spirometry, DVT and GI prophylaxis protocol be done, continue current pain management per orthopedics, PT and OT 2. Acute kidney injury with chronic kidney disease stage III. Patient has been on IV fluids which will be to discontinued today. Recheck renal function tomorrow. 3. Paroxysmal A. fib: Pulse rate is under control currently we'll resume metoprolol Tatrate 12.5 mg daily patient was on Eliquis 5 mg twice a day. 3. Mild intermittent asthma/COPD without exacerbation: Patient is using BiPAP, is on oxygen currently, seen pulmonary and has been on Combivent along with Singulair and Symbicort. Medication will be resume Will add incentive spirometry and watch for any atelectasis. 4. History of hypertension: Continue patient on amlodipine 10 mg a day, metoprolol 12.5 mg daily and irbesartan 300 mg daily at bedtime. 5. Type 2 diabetes with hyperglycemia: Has been on metformin 500 mg daily Accu- Chek with sliding-scale's coverage will be done. 6. Hyperlipidemia: Remain on Crestor 5 mg a day. 7. Chronic history of neuropathy: Most likely from spinal stenosis has been on gabapentin 600 mg twice a day. 8. Chronic pain management: Patient has been on tramadol and gabapentin. 9. Obstructive sleep apnea: Patient has been using BiPAP regular basis. 10. GI prophylaxis: Patient will be on Pepcid 20 mg twice a day. 11. DVT prophylaxis: Resume Eliquis. Dr. Young thank you much for the consult if I can be any further help to please let me know. DISCHARGE PLAN Subacute rehab Impression and plan of care have been directed as dictated by the signing physician. Shellie Meneses nurse practitioner acting as scribe for signing physician. Objective - Vital Signs Vital signs: Vital Signs Temp 97.8 F 07/20/21 06:10 Pulse 112 H 07/20/21 08:49 Resp 19 07/20/21 06:10 BP 131/64 07/20/21 06:10 Pulse Ox 94 L 07/20/21 06:10 Intake & Output 07/19/21 07/20/21 07/20/21 18:59 06:59 18:59 Intake Total 400 1200 Output Total 50 700 Balance 350 500 Intake: Intake, IV Titration 900 Amount Sodium Chloride 0.9% 1, 900 000 ml @ 75 mls/hr IV . [id number] [facility] Rx#:[id number] Oral 400 300 Output: Urine 50 700 Other: Voiding Method Urinal - Labs CBC & Chem 7: 07/20/21 09:58 07/20/21 09:58 Labs: Abnormal Lab Results - Last 24 Hours (Table) 07/19/21 07/19/21 07/19/21 Range/Units 05:30 11:30 16:32 Carbon Dioxide 19.7 L (21.6-31.8) mmol/L Anion Gap 13.30 H (4.00-12.00) mmol/L Creatinine 2.1 H (0.6-1.5) mg/dL Est GFR (CKD-EPI)AfAm 35.9 L (60.0-200.0) Est GFR (CKD-EPI)NonAf 31.0 L (60.0-200.0) BUN/Creatinine Ratio 10.00 L (12.00-20.00) Ratio Glucose 131 H (70-110) mg/dL POC Glucose (mg/dL) 200 H 190 H (75-99) mg/dL Calcium 8.4 L (8.7-10.3) mg/dL 07/19/21 07/20/21 Range/Units 20:32 06:46 Carbon Dioxide (21.6-31.8) mmol/L Anion Gap (4.00-12.00) mmol/L Creatinine (0.6-1.5) mg/dL Est GFR (CKD-EPI)AfAm (60.0-200.0) Est GFR (CKD-EPI)NonAf (60.0-200.0) BUN/Creatinine Ratio (12.00-20.00) Ratio Glucose (70-110) mg/dL POC Glucose (mg/dL) 191 H 140 H (75-99) mg/dL Calcium (8.7-10.3) mg/dL
[2021-07-20] MEDS: HYDROcodone/APAP 5-325MG 1 EACH TAB PO PRN ×2 (15:53→20:34)
[2021-07-20 16:41] LABS: Glucose,Whole Blood 236 mg/dL (75-99)
[2021-07-20 20:14] LABS: Glucose,Whole Blood 222 mg/dL (75-99)
[2021-07-20] MEDS: LOSARTAN 50 MG TAB PO SCH (20:28)
[2021-07-20] MEDS: ATORVASTATIN 10 MG TAB PO SCH (20:28)
[2021-07-20] MEDS: MONTELUKAST 10 MG TAB PO SCH (20:28)
[2021-07-21] MEDS: CYCLOBENZAPRINE 10 MG TAB PO PRN ×2 (03:29→17:49)
[2021-07-21] MEDS: HYDROcodone/APAP 5-325MG 1 EACH TAB PO PRN ×3 (03:29→17:49)
[2021-07-21 07:18] LABS: Glucose,Whole Blood 213 mg/dL (75-99)
[2021-07-21] MEDS: SYMBICORT 160-4.5 MCG INHALER INHALATION SCH ×2 (07:19→20:25)
[2021-07-21] MEDS: IPRATROPIUM-ALBUTEROL 3 ML NEB INHALATION SCH ×2 (07:19→20:26)
[2021-07-21] MEDS: METOPROLOL TARTRATE 12.5 MG TAB PO SCH (07:31)
[2021-07-21] MEDS: hydrALAZINE HCL 25 MG TAB PO SCH ×3 (07:31→21:55)
[2021-07-21] MEDS: metFORMIN 500 MG TAB PO SCH (07:31)
[2021-07-21] MEDS: amLODIPine 10 MG TAB PO SCH (07:31)
[2021-07-21] MEDS: FAMOTIDINE 20 MG TAB PO SCH (07:31)
[2021-07-21] MEDS: polyethylene glycoL 3350 17 GM POWD.PACK PO SCH (07:31)
[2021-07-21] MEDS: INSULIN ASPART (NovoLOG) 100 UNIT/ML VIAL SQ SCH ×4 (07:31→21:55)
[2021-07-21] MEDS: APIXABAN 5 MG TAB PO SCH ×2 (07:31→21:55)
[2021-07-21] MEDS: GABAPENTIN 300 MG CAP PO SCH ×2 (07:32→21:55)
[2021-07-21] MEDS: SENNOSIDES-DOCUSATE SODIUM 1 EACH TAB PO SCH ×2 (07:32→13:57)
[2021-07-21 10:34] LABS: African American GFR (CKD) 46.3 (60.0-200.0); Albumin 3.2 g/dL (3.8-4.9); Albumin/Globulin Ratio 1.39 (1.60-3.17); Anion Gap 13.5 mmol/L (4.00-12.00); BUN/Creat Ratio 13.76 Ratio (12.00-20.00); Blood Urea Nitrogen 23.4 mg/dL (9.0-27.0); Calcium 8.7 mg/dL (8.7-10.3); Carbon Dioxide 16.5 mmol/L (21.6-31.8); Globulin 2.3 g/dL (1.6-3.3); Potassium 4.9 mmol/L (3.5-5.5); Total Bilirubin 0.4 mg/dL (0.30-1.20); Total Protein 5.5 g/dL (6.2-8.2)
[2021-07-21 10:40] LABS: HCT 30.8 % (39.6-50.0); HGB 9.8 g/dL (13.0-17.0); MCH 29.8 pg (27.0-32.0); MCHC 31.8 g/dL (32.0-37.0); MCV 93.6 fL (80.0-97.0); Mean Platelet Volume 9.8 fL (9.5-12.2); Platelet Count 273 X 10*3/uL (140-440); RBC 3.29 X 10*6/uL (4.40-5.60); WBC 16.54 X 10*3/uL (4.50-10.00)
--- NOTE | 2021-07-21 11:07 | P.PN ---
Subjective Progress Note Date: 07/21/21 This is a 70- year old male who is status-post minimally invasive decompression fusion L3 4 L4 5 L5-S1 on 07/18/[address] Young. Today is post-operative day #3. Patient is seen and examined bedside. Patient is up to the bedside chair. He feels his mobilization has continued to improve, although he is requiring 1-2 person assist to the chair. He would like to discuss rehab on discharge. His pain is well controlled. He denies chest pain, shortness of breath, nausea, vomiting, fevers, chills. No new complaints. Objective - Vital Signs Vital signs: Vital Signs Temp 98.4 F 07/21/21 01:03 Pulse 114 H 07/21/21 09:39 Resp 16 07/21/21 09:39 BP 112/73 07/21/21 09:39 Pulse Ox 96 07/21/21 09:39 Intake & Output 07/20/21 07/21/21 07/21/21 18:59 06:59 18:59 Intake Total 1080 300 Output Total 1000 Balance 80 300 Intake: Oral 1080 300 Output: Urine 1000 Other: Voiding Method Urinal Urinal # Voids 3 1 - Exam patient seen and examined bedside this morning. On examination, he is sitting up in the bedside chair. On inspection of the low back, there are clean, dry, intact surgical dressings in place. No bleeding or drainage through the dressings. on inspection of the bilateral lower extremities, the patient has good strength and range of motion of the ankles. Patient has good dorsiflexion and plantarflexion of the ankle. EHL function intact bilaterally. The bilateral lower extremities are warm and well-perfused with brisk capillary refill. Bilateral calves are soft and nontender to palpation, no evidence of DVT. - Labs CBC & Chem 7: 07/21/21 03:10 07/21/21 03:10 Labs: Abnormal Lab Results - Last 24 Hours (Table) 07/20/21 07/20/21 07/20/21 Range/Units 09:58 11:59 16:40 WBC (4.50-10.00) X 10*3/uL RBC (4.40-5.60) X 10*6/uL Hgb (13.0-17.0) g/dL Hct (39.6-50.0) % MCHC (32.0-37.0) g/dL Sodium 131 L (137-145) mmol/L Potassium 5.2 H (3.5-5.1) mmol/L Carbon Dioxide 20 L (22-30) mmol/L Anion Gap (4.00-12.00) mmol/L Creatinine 1.78 H (0.66-1.25) mg/dL Est GFR (CKD-EPI)AfAm (60.0-200.0) Est GFR (CKD-EPI)NonAf (60.0-200.0) Glucose 266 H (74-99) mg/dL POC Glucose (mg/dL) 238 H 236 H (75-99) mg/dL Total Protein 5.8 L (6.3-8.2) g/dL Albumin 3.0 L (3.5-5.0) g/dL Albumin/Globulin Ratio (1.60-3.17) g/dL 07/20/21 07/21/21 07/21/21 Range/Units 20:12 03:10 03:10 WBC 16.54 H (4.50-10.00) X 10*3/uL RBC 3.29 L (4.40-5.60) X 10*6/uL Hgb 9.8 L (13.0-17.0) g/dL Hct 30.8 L (39.6-50.0) % MCHC 31.8 L (32.0-37.0) g/dL Sodium 132 L (137-145) mmol/L Potassium (3.5-5.1) mmol/L Carbon Dioxide 16.5 L (22-30) mmol/L Anion Gap 13.50 H (4.00-12.00) mmol/L Creatinine 1.7 H (0.66-1.25) mg/dL Est GFR (CKD-EPI)AfAm 46.3 L (60.0-200.0) Est GFR (CKD-EPI)NonAf 40.0 L (60.0-200.0) Glucose 201 H (74-99) mg/dL POC Glucose (mg/dL) 222 H (75-99) mg/dL Total Protein 5.5 L (6.3-8.2) g/dL Albumin 3.2 L (3.5-5.0) g/dL Albumin/Globulin Ratio 1.39 L (1.60-3.17) g/dL 07/21/21 Range/Units 07:16 WBC (4.50-10.00) X 10*3/uL RBC (4.40-5.60) X 10*6/uL Hgb (13.0-17.0) g/dL Hct (39.6-50.0) % MCHC (32.0-37.0) g/dL Sodium (137-145) mmol/L Potassium (3.5-5.1) mmol/L Carbon Dioxide (22-30) mmol/L Anion Gap (4.00-12.00) mmol/L Creatinine (0.66-1.25) mg/dL Est GFR (CKD-EPI)AfAm (60.0-200.0) Est GFR (CKD-EPI)NonAf (60.0-200.0) Glucose (74-99) mg/dL POC Glucose (mg/dL) 213 H (75-99) mg/dL Total Protein (6.3-8.2) g/dL Albumin (3.5-5.0) g/dL Albumin/Globulin Ratio (1.60-3.17) g/dL Assessment and Plan Assessment: Status-post minimally invasive decompression fusion L3-4 L4-5 L5-S1 on 07/18/21. Post-operative day #3. Plan: - Patient may continue to mobilize as tolerated. Up with assistance, and a walker. May ambulate as tolerated. - Physical therapy to increase mobilization. - Pain management with oral medications. - Appreciate internal medicine consultation for medical management. - Will consult with case management about potential change of discharge plan, patient would like to be discharged to rehab.
[2021-07-21 11:48] LABS: Glucose,Whole Blood 318 mg/dL (75-99)
[2021-07-21] MEDS ORDERED: SENNOSIDES 8.6 MG TAB PO SCH (12:45)
--- NOTE | 2021-07-21 15:18 | P.PN ---
Subjective Progress Note Date: 07/21/21 HISTORY OF PRESENT ILLNESS 70-year-old male one of Dr. Marcos Clark's patient with multiple medical problem was known to have history of obstructive sleep apnea on BiPAP seen Dr. Singh regular basis also had history of asthma and active fibrillation seen Dr. EDILIA leach and has been on anticoagulation. Patient had developed severe lower back pain and discomfort for the last 2 years and has done conservative management along with pain management and epidural injection. Patient was seen by Dr. Young and schedule elective laminectomy and decompression of the lumbar spine. Patient ended up coming to the hospital today and have elective surgery successfully is up in the floor still waking up still have slight bit pain otherwise doing well. His medication will be finalized patient will have his BiPAP with him today to use through the night. He is not having any wheezes or any asthma flareup at this time his A. fib with pulse rates under control and patient he is hemodynamically stable. 07/19: Patient states that he is feeling so-so today. He is found sitting up in a chair. He has been afebrile, heart rate 118, blood pressure 104/59, pulse ox 94% on 3 L nasal cannula. WBC 11.7, hemoglobin 9.6, platelet count 248. Blood sugars running between 166 and 200. Patient is to work with PT and OT today, no plan for discharge today. Also plan to wean patient off oxygen, he is not oxygen dependent at home. 07/21: Patient is doing much better is in the chair laying down his pain is much better controlled than yesterday, patient mobility still significantly decreased patient probably require to go for subacute rehab. Blood sugar still mildly elevated patient is quite admitted extra help with it. REVIEW OF SYSTEMS Constitutional: No fever, no chills, no night sweats. No weight change. No weakness, fatigue or lethargy. No daytime sleepiness. EENT: No headache. No blurred vision or double vision, no loss of vision. No loss of Hearing, no ringing in the ears, no dizziness. No nasal drainage or congestion. No epistaxis. No sore throat. Lungs: History of asthma, obstructive sleep apnea on BiPAP, but he is complai ron of No shortness of breath, cough, no sputum production. No wheezing. Cardiovascular: Has history of A. fib and atherosclerotic heart disease, denies chest pain, no lower extremity edema. No palpitations. No paroxysmal nocturnal dyspnea. No orthopnea. No lightheadedness or dizziness. No syncopal episodes. Abdominal: No abdominal pain. No nausea, vomiting. No diarrhea. No constipation. No bloody or tarry stools.. No loss of appetite. Genitourinary: No dysuria, increased frequency, urgency. No urinary retention. Musculoskeletal: No myalgias. No muscle weakness, no gait dysfunction, no frequent falls. No back pain. No neck pain. Integumentary: No wounds, no lesions. No rash or pruritus. No unusual bruising. No change in hair or nails. Neurologic: No aphasia. No facial droop. No change in mentation. No head injury. No headache. No paralysis. No paresthesia. Psychiatric: No depression. No anxiety. No mood swings. Endocrine: No abnormal blood sugars. No weight change. No excessive sweating or thirst. No cold intolerance. PHYSICAL EXAMINATION Gen: This is obese 70-year-old male. He is found sitting in a recliner and appears to be somewhat uncomfortable secondary to pain. He is currently on O2 at 3 L nasal cannula. HEENT: Head is atraumatic, normocephalic. Pupils equal, round. Sclerae is anicteric. NECK: Supple. No JVD. No lymphadenopathy. No thyromegaly. LUNGS: Decreased breath some bilaterally with fine rhonchi no crackles or wheezes. HEART: Irregular rate and rhythm, S1, S2 positive S3 No murmur. ABDOMEN: Soft. Bowel sounds are present. No masses. No tenderness. EXTREMITIES: Trace edema he skinned his left knee with slight bruise from recent injury with no sign of infection. NEUROLOGICAL: Patient is awake, alert and oriented x3. Cranial nerves 2 through 12 are grossly intact. ASSESSMENT AND PLAN 1. Post lumbar spine surgery: Patient is doing well resume home meds, incentive spirometry, DVT and GI prophylaxis protocol be done, we watch patient pain and hemodynamic st 2. Paroxysmal A. fib: Pulse rate is under control currently we'll resume metoprolol Tatrate 12.5 mg daily patient was on Eliquis 5 mg twice a day. Pulse rate running in the 70s and 80s. 3. Mild intermittent asthma/COPD: Patient is using BiPAP, is on oxygen currently, seen pulmonary and has been on Combivent along with Singulair and Symbicort. Medication will be resume Will add incentive spirometry and watch for any atelectasis. Patient pulse ox is running about 90%. 4. History of hypertension: Continue patient on amlodipine 10 mg a day, metoprolol 12.5 mg daily and irbesartan 300 mg daily at bedtime. With systolic blood pressures are running below 140. 5. Type 2 diabetes: Has been on metformin 500 mg daily Accu-Chek with sliding- scale's coverage will be done. Titrate medication higher. 6. Hyperlipidemia: Remain on Crestor 5 mg a day. 7. Chronic history of neuropathy: Most likely from spinal stenosis has been on gabapentin 600 mg twice a day. 8. Chronic pain management: Patient has been on tramadol and gabapentin. 9. Obstructive sleep apnea: Patient has been using BiPAP regular basis. Discharge planning: Patient most likely be going to subacute rehab on Friday.. Objective - Vital Signs Vital signs: Vital Signs Temp 98.4 F 07/21/21 01:03 Pulse 114 H 07/21/21 09:39 Resp 16 07/21/21 09:39 BP 112/73 07/21/21 09:39 Pulse Ox 96 07/21/21 09:39 Intake & Output 07/20/21 07/21/21 07/21/21 18:59 06:59 18:59 Intake Total 1080 300 Output Total 1000 Balance 80 300 Intake: Oral 1080 300 Output: Urine 1000 Other: Voiding Method Urinal Urinal # Voids 3 1 - Labs CBC & Chem 7: 07/21/21 03:10 07/21/21 03:10 Labs: Abnormal Lab Results - Last 24 Hours (Table) 07/20/21 07/20/21 07/20/21 Range/Units 11:59 16:40 20:12 WBC (4.50-10.00) X 10*3/uL RBC (4.40-5.60) X 10*6/uL Hgb (13.0-17.0) g/dL Hct (39.6-50.0) % MCHC (32.0-37.0) g/dL Sodium (135-145) mmol/L Carbon Dioxide (21.6-31.8) mmol/L Anion Gap (4.00-12.00) mmol/L Creatinine (0.6-1.5) mg/dL Est GFR (CKD-EPI)AfAm (60.0-200.0) Est GFR (CKD-EPI)NonAf (60.0-200.0) Glucose (70-110) mg/dL POC Glucose (mg/dL) 238 H 236 H 222 H (75-99) mg/dL Total Protein (6.2-8.2) g/dL Albumin (3.8-4.9) g/dL Albumin/Globulin Ratio (1.60-3.17) g/dL 07/21/21 07/21/21 07/21/21 Range/Units 03:10 03:10 07:16 WBC 16.54 H (4.50-10.00) X 10*3/uL RBC 3.29 L (4.40-5.60) X 10*6/uL Hgb 9.8 L (13.0-17.0) g/dL Hct 30.8 L (39.6-50.0) % MCHC 31.8 L (32.0-37.0) g/dL Sodium 132 L (135-145) mmol/L Carbon Dioxide 16.5 L (21.6-31.8) mmol/L Anion Gap 13.50 H (4.00-12.00) mmol/L Creatinine 1.7 H (0.6-1.5) mg/dL Est GFR (CKD-EPI)AfAm 46.3 L (60.0-200.0) Est GFR (CKD-EPI)NonAf 40.0 L (60.0-200.0) Glucose 201 H (70-110) mg/dL POC Glucose (mg/dL) 213 H (75-99) mg/dL Total Protein 5.5 L (6.2-8.2) g/dL Albumin 3.2 L (3.8-4.9) g/dL Albumin/Globulin Ratio 1.39 L (1.60-3.17) g/dL
[2021-07-21 16:57] LABS: Glucose,Whole Blood 227 mg/dL (75-99)
[2021-07-21 21:02] LABS: Glucose,Whole Blood 241 mg/dL (75-99)
[2021-07-21] MEDS: ATORVASTATIN 10 MG TAB PO SCH (21:55)
[2021-07-21] MEDS: LOSARTAN 50 MG TAB PO SCH (21:55)
[2021-07-21] MEDS: MONTELUKAST 10 MG TAB PO SCH (21:55)
[2021-07-22] MEDS: HYDROcodone/APAP 5-325MG 1 EACH TAB PO PRN ×5 (01:07→22:09)
[2021-07-22 07:28] LABS: Glucose,Whole Blood 221 mg/dL (75-99)
[2021-07-22] MEDS: INSULIN ASPART (NovoLOG) 100 UNIT/ML VIAL SQ SCH ×4 (07:49→22:08)
[2021-07-22] MEDS: hydrALAZINE HCL 25 MG TAB PO SCH ×3 (07:49→22:08)
[2021-07-22] MEDS: polyethylene glycoL 3350 17 GM POWD.PACK PO SCH (07:49)
[2021-07-22] MEDS: GABAPENTIN 300 MG CAP PO SCH ×2 (07:50→22:08)
[2021-07-22] MEDS: amLODIPine 10 MG TAB PO SCH (07:50)
[2021-07-22] MEDS: FAMOTIDINE 20 MG TAB PO SCH (07:50)
[2021-07-22] MEDS: SENNOSIDES-DOCUSATE SODIUM 1 EACH TAB PO SCH (07:50)
[2021-07-22] MEDS: APIXABAN 5 MG TAB PO SCH ×2 (07:50→22:08)
[2021-07-22] MEDS: metFORMIN 500 MG TAB PO SCH (07:50)
[2021-07-22] MEDS: METOPROLOL TARTRATE 12.5 MG TAB PO SCH (07:51)
[2021-07-22] MEDS ORDERED: bisacodyL 10 MG SUPP RECTAL STA (08:00)
[2021-07-22] MEDS: IPRATROPIUM-ALBUTEROL 3 ML NEB INHALATION SCH ×2 (08:00→20:19)
[2021-07-22] MEDS: SYMBICORT 160-4.5 MCG INHALER INHALATION SCH ×2 (08:01→20:20)
[2021-07-22] MEDS: CYCLOBENZAPRINE 10 MG TAB PO PRN ×2 (08:32→17:55)
--- NOTE | 2021-07-22 10:09 | P.PN ---
Subjective Progress Note Date: 07/22/21 This is a 70- year old male who is status-post minimally invasive decompression fusion L3 4 L4 5 L5-S1 on 07/18/[address] Young. Today is post-operative day #4. Patient is seen and examined bedside. Patient states he has decided he would like to be discharged to rehab. He states he continues to require at least 1-2 person assist to get out of bed. He would feel more comfortable discharging to rehab. He denies any new complaints or concerns. His pain is well-controlled. He is tolerating his diet well. He is urinating without issue. He has not yet had a bowel movement, per nursing he just received a suppository. He denies chest pain or shortness of breath. Objective - Vital Signs Vital signs: Vital Signs Temp 97.6 F 07/22/21 07:53 Pulse 110 H 07/22/21 08:13 Resp 16 07/22/21 08:13 BP 102/67 07/22/21 07:53 Pulse Ox 97 07/22/21 08:01 Intake & Output 07/21/21 07/22/21 07/22/21 19:59 06:59 18:59 Output Total Balance Output: Urine Other: Voiding Method Urinal # Bowel Movements - Exam Patient seen and examined bedside this morning. On examination, he is laying in bed. On inspection of the low back, there are clean, dry, intact surgical dressings in place. No surrounding erythema, warmth, fluctuance. No signs of infection. On inspection of the bilateral lower extremities, the patient has good strength and range of motion of the ankles. Patient has good dorsiflexion and plantarflexion of the ankle. EHL function intact bilaterally. The bilateral lower extremities are warm and well-perfused with brisk capillary refill. Bilateral calves are soft and nontender to palpation, no evidence of DVT. - Labs CBC & Chem 7: 07/21/21 03:10 07/21/21 03:10 Labs: Abnormal Lab Results - Last 24 Hours (Table) 07/21/21 07/21/21 07/21/21 Range/Units 11:46 16:56 21:00 POC Glucose (mg/dL) 318 H 227 H 241 H (75-99) mg/dL 07/22/21 Range/Units 07:26 POC Glucose (mg/dL) 221 H (75-99) mg/dL Assessment and Plan Assessment: Status-post minimally invasive decompression fusion L3-4 L4-5 L5-S1 on 07/18/21. Post-operative day #4. Plan: - Patient may continue to mobilize as tolerated. Up with assistance, and a walker. May ambulate as tolerated. - Physical therapy to increase mobilization. - Pain management with oral medications. - Appreciate internal medicine consultation for medical management. - Case management is aware patient would like to discharge to rehab. We will plan for discharge to [facility] on Friday at the earliest.
--- NOTE | 2021-07-22 10:53 | P.PN ---
Subjective Progress Note Date: 07/22/21 HISTORY OF PRESENT ILLNESS 70-year-old male one of Dr. Marcos Clark's patient with multiple medical problem was known to have history of obstructive sleep apnea on BiPAP seen Dr. Singh regular basis also had history of asthma and active fibrillation seen Dr. EDILIA leach and has been on anticoagulation. Patient had developed severe lower back pain and discomfort for the last 2 years and has done conservative management along with pain management and epidural injection. Patient was seen by Dr. Young and schedule elective laminectomy and decompression of the lumbar spine. Patient ended up coming to the hospital today and have elective surgery successfully is up in the floor still waking up still have slight bit pain otherwise doing well. His medication will be finalized patient will have his BiPAP with him today to use through the night. He is not having any wheezes or any asthma flareup at this time his A. fib with pulse rates under control and patient he is hemodynamically stable. 07/19: Patient states that he is feeling so-so today. He is found sitting up in a chair. He has been afebrile, heart rate 118, blood pressure 104/59, pulse ox 94% on 3 L nasal cannula. WBC 11.7, hemoglobin 9.6, platelet count 248. Blood sugars running between 166 and 200. Patient is to work with PT and OT today, no plan for discharge today. Also plan to wean patient off oxygen, he is not oxygen dependent at home. 07/21: Patient is doing much better is in the chair laying down his pain is much better controlled than yesterday, patient mobility still significantly decreased patient probably require to go for subacute rehab. Blood sugar still mildly elevated patient is quite admitted extra help with it. 07/22: Patient is doing slightly but better today still laying in bed his mobility still significantly decreased hip been slightly bit discouraged about n ot improving on time. Plan is to get patient to subacute rehab by tomorrow for physical therapy for the next few days. Otherwise is not having any urinary retention, still have mild constipation, pain is well controlled with current medication. REVIEW OF SYSTEMS Constitutional: No fever, no chills, no night sweats. No weight change. No weakness, fatigue or lethargy. No daytime sleepiness. EENT: No headache. No blurred vision or double vision, no loss of vision. No loss of Hearing, no ringing in the ears, no dizziness. No nasal drainage or congestion. No epistaxis. No sore throat. Lungs: History of asthma, obstructive sleep apnea on BiPAP, but he is compla ining of No shortness of breath, cough, no sputum production. No wheezing. Cardiovascular: Has history of A. fib and atherosclerotic heart disease, denies chest pain, no lower extremity edema. No palpitations. No paroxysmal nocturnal dyspnea. No orthopnea. No lightheadedness or dizziness. No syncopal episodes. Abdominal: No abdominal pain. No nausea, vomiting. No diarrhea. No constipation. No bloody or tarry stools.. No loss of appetite. Genitourinary: No dysuria, increased frequency, urgency. No urinary retention. Musculoskeletal: No myalgias. No muscle weakness, no gait dysfunction, no frequent falls. No back pain. No neck pain. Integumentary: No wounds, no lesions. No rash or pruritus. No unusual bruising. No change in hair or nails. Neurologic: No aphasia. No facial droop. No change in mentation. No head injury. No headache. No paralysis. No paresthesia. Psychiatric: No depression. No anxiety. No mood swings. Endocrine: No abnormal blood sugars. No weight change. No excessive sweating or thirst. No cold intolerance. PHYSICAL EXAMINATION Gen: This is obese 70-year-old male. He is found sitting in a recliner and appears to be somewhat uncomfortable secondary to pain. He is currently on O2 at 3 L nasal cannula. HEENT: Head is atraumatic, normocephalic. Pupils equal, round. Sclerae is anicteric. NECK: Supple. No JVD. No lymphadenopathy. No thyromegaly. LUNGS: Decreased breath some bilaterally with fine rhonchi no crackles or wheezes. HEART: Irregular rate and rhythm, S1, S2 positive S3 No murmur. ABDOMEN: Soft. Bowel sounds are present. No masses. No tenderness. EXTREMITIES: Trace edema he skinned his left knee with slight bruise from recent injury with no sign of infection. NEUROLOGICAL: Patient is awake, alert and oriented x3. Cranial nerves 2 through 12 are grossly intact. ASSESSMENT AND PLAN 1. Post lumbar spine surgery: Secondary prevention continue PTOT patient will require subacute rehab. 2. Paroxysmal A. fib: Ringing very well on metoprolol and Eliquis no side effect or complication pulse rates under control. 3. Mild intermittent asthma/COPD: Patient is using BiPAP, is on oxygen currently, and his judgment oxygen level is good above 90 percentile. 4. History of hypertension: Continue patient on amlodipine 10 mg a day, metoprolol 12.5 mg daily and irbesartan 300 mg daily at bedtime. With systolic blood pressures are running below 140. 5. Type 2 diabetes: Has been on metformin 500 mg daily Accu-Chek with sliding- scale's coverage will be done. Titrate medication higher. 6. Hyperlipidemia: Remain on Crestor 5 mg a day. 7. Chronic history of neuropathy: Most likely from spinal stenosis has been on gabapentin 600 mg twice a day. 8. Chronic pain management: Patient has been on tramadol and gabapentin. 9. Obstructive sleep apnea: Patient has been using BiPAP regular basis. Discharge planning: Patient most likely be going to subacute rehab on Friday. Objective - Vital Signs Vital signs: Vital Signs Temp 97.6 F 07/22/21 07:53 Pulse 110 H 07/22/21 08:13 Resp 16 07/22/21 08:13 BP 102/67 07/22/21 07:53 Pulse Ox 97 07/22/21 08:01 Intake & Output 07/21/21 07/22/21 07/22/21 19:59 06:59 18:59 Output Total Balance Output: Urine Other: Voiding Method Urinal # Bowel Movements - Labs CBC & Chem 7: 07/21/21 03:10 07/21/21 03:10 Labs: Abnormal Lab Results - Last 24 Hours (Table) 07/21/21 07/21/21 07/22/21 Range/Units 16:56 21:00 07:26 POC Glucose (mg/dL) 227 H 241 H 221 H (75-99) mg/dL
[2021-07-22] MEDS: LACTULOSE 20 GM/30 ML CUP PO SCH ×2 (11:32→22:09)
[2021-07-22 11:36] LABS: Glucose,Whole Blood 272 mg/dL (75-99)
[2021-07-22 16:36] LABS: Glucose,Whole Blood 256 mg/dL (75-99)
[2021-07-22 21:15] LABS: Glucose,Whole Blood 193 mg/dL (75-99)
[2021-07-22] MEDS: LOSARTAN 50 MG TAB PO SCH (22:08)
[2021-07-22] MEDS: MONTELUKAST 10 MG TAB PO SCH (22:08)
[2021-07-22] MEDS: ATORVASTATIN 10 MG TAB PO SCH (22:13)
[2021-07-23 07:34] LABS: Glucose,Whole Blood 183 mg/dL (75-99)
[2021-07-23] MEDS: polyethylene glycoL 3350 17 GM POWD.PACK PO SCH (07:50)
[2021-07-23] MEDS: LACTULOSE 20 GM/30 ML CUP PO SCH ×2 (07:50→21:50)
[2021-07-23] MEDS: FAMOTIDINE 20 MG TAB PO SCH (07:51)
[2021-07-23] MEDS: hydrALAZINE HCL 25 MG TAB PO SCH ×3 (07:51→21:50)
[2021-07-23] MEDS: METOPROLOL TARTRATE 12.5 MG TAB PO SCH (07:51)
[2021-07-23] MEDS: APIXABAN 5 MG TAB PO SCH ×2 (07:51→21:49)
[2021-07-23] MEDS: metFORMIN 500 MG TAB PO SCH ×2 (07:51→17:09)
[2021-07-23] MEDS: amLODIPine 10 MG TAB PO SCH (07:51)
[2021-07-23] MEDS: SENNOSIDES-DOCUSATE SODIUM 1 EACH TAB PO SCH (07:51)
[2021-07-23] MEDS: GABAPENTIN 300 MG CAP PO SCH ×2 (07:51→21:50)
[2021-07-23] MEDS: HYDROcodone/APAP 5-325MG 1 EACH TAB PO PRN ×3 (07:52→21:50)
[2021-07-23] MEDS: INSULIN ASPART (NovoLOG) 100 UNIT/ML VIAL SQ SCH ×5 (07:52→21:51)
--- NOTE | 2021-07-23 08:38 | P.PN ---
Progress Note - Text Progress Note Date: 07/23/21 Orthopedic Spine: History of present illness: Patient is a pleasant 70-year-old who is seen and examined at the bedside following posterior lateral decompression and fusion performed 07/18/2021. Patient states they are doing ok postsurgically. He has had some improvement over the weekend but continues to improve significantly slowly. He continues to be a 1-2 person assist. He was able to ambulate to the restroom yesterday. He has had some postoperative constipation. He did have a suppository yesterday. He states he had one small bowel movement but not a significant bowel movement. He is passing gas. He is not currently complaining of abdominal pain. He is not currently complaining of any pain in the lower extremities bilaterally. He does have pain at his lumbar spine at the surgical sites. He does have significant difficulty with changing positions in bed. Currently does not complain of nausea, vomiting, fever, or chills. Patient states pain has been adequately controlled. Patient is eating and voiding freely without difficulty. He is planning for discharge to [facility] when approved and once cleared for discharge. He continues to be seen and examined by medicine for his other medical diagnoses including diabetes, hypertension, heart disease, obesity, and history of atrial fibrillation. Physical Exam Lumbar Fusion: Status post surgical day number Patient is awake, alert, and oriented 3 Vital signs stable Good chest excursion with deep inspiration and expiration Abdomen soft nontender to palpation Dorsiflexion, plantarflexion, and extensor hallucis longus positive sustained bilaterally No signs or symptoms of DVT; no calf pain; pneumatic cuffs not currently intact bilateral lower extremities Optifoam dressings are clean, dry, and intact over the lumbar spine and right iliac crest; no erythema, purulence, or signs of infection Dressings are removed during physical examination No active drainage from the surgical sites Neurovascularly intact bilaterally lower extremities Assessment: Status post L3-4, L4-5, and L5-S1 minimally invasive posterior lateral decompression and fusion with transforaminal lumbar interbody fusion Low back pain Lumbar spinal stenosis Severe lumbar degenerative disc disease Neurogenic claudication Lower extremity weakness Lower extremity radiculopathy Constipation Diabetes Hypertension History of atrial fibrillation Heart disease Obesity Plan: 1. Ambulate as tolerated; work with Physical Therapy to increase mobilization 2. Continue pain control with IV and oral medications; will plan to begin weaning the patient off of IV narcotic medication in anticipation for discharge to [facility] tomorrow; Continue pain control with oral [place] and cyclobenzaprine 3. Patient may shower with dressings intact 4. Medical management can continue to manage patient for patient's other medical diagnoses including constipation, diabetes, hypertension, heart disease, and history of atrial fibrillation 5. Continue with medications as prescribed as needed to help facilitate a bowel movement 6. We will continue to follow the patient closely; depending on the patient's progress, we may plan for discharge to a rehabilitation facility as early as tomorrow, 07/24/2021. We discussed patient must be approved for discharge to rehabilitation facility, patient must be cleared by medicine, and patient must have a bowel movement prior to discharge. 7. Patient can follow-up with Noble Owens PA-C or Dr. Néstor Young at [facility] in 2-3 weeks following discharge
[2021-07-23] MEDS: SYMBICORT 160-4.5 MCG INHALER INHALATION SCH ×2 (09:51→19:28)
[2021-07-23] MEDS: IPRATROPIUM-ALBUTEROL 3 ML NEB INHALATION SCH ×2 (09:51→19:28)
[2021-07-23] MEDS ORDERED: NA PHOS,M-B/NA PHOS,DI-BA 133 ML ENEMA RECTAL STA (10:19)
[2021-07-23 11:55] LABS: Glucose,Whole Blood 272 mg/dL (75-99)
[2021-07-23 14:06] LABS: Glucose,Whole Blood 234 mg/dL (75-99)
--- NOTE | 2021-07-23 15:18 | P.PN ---
Subjective Progress Note Date: 07/23/21 HISTORY OF PRESENT ILLNESS 70-year-old male one of Dr. Marcos Clark's patient with multiple medical problem was known to have history of obstructive sleep apnea on BiPAP seen Dr. Singh regular basis also had history of asthma and active fibrillation seen Dr. EDILIA leach and has been on anticoagulation. Patient had developed severe lower back pain and discomfort for the last 2 years and has done conservative management along with pain management and epidural injection. Patient was seen by Dr. Young and schedule elective laminectomy and decompression of the lumbar spine. Patient ended up coming to the hospital today and have elective surgery successfully is up in the floor still waking up still have slight bit pain otherwise doing well. His medication will be finalized patient will have his BiPAP with him today to use through the night. He is not having any wheezes or any asthma flareup at this time his A. fib with pulse rates under control and patient he is hemodynamically stable. 07/19: Patient states that he is feeling so-so today. He is found sitting up in a chair. He has been afebrile, heart rate 118, blood pressure 104/59, pulse ox 94% on 3 L nasal cannula. WBC 11.7, hemoglobin 9.6, platelet count 248. Blood sugars running between 166 and 200. Patient is to work with PT and OT today, no plan for discharge today. Also plan to wean patient off oxygen, he is not oxygen dependent at home. 07/21: Patient is doing much better is in the chair laying down his pain is much better controlled than yesterday, patient mobility still significantly decreased patient probably require to go for subacute rehab. Blood sugar still mildly elevated patient is quite admitted extra help with it. 07/22: Patient is doing slightly but better today still laying in bed his mobility still significantly decreased hip been slightly bit discouraged about n ot improving on time. Plan is to get patient to subacute rehab by tomorrow for physical therapy for the next few days. Otherwise is not having any urinary retention, still have mild constipation, pain is well controlled with current medication. 07/23: States he is feeling all right today. He did have a bowel movement last evening which was very small and otherwise has not had a bowel movement since Friday. He is on lactulose 50 mg twice daily, milk of magnesia, MiraLAX 17 g daily, Senokot-S 2 daily. Fleets enema will be added today for constipation. Orthopedics is planning for discharge to [facility] tomorrow. He has been afebrile, heart rate 86, blood pressure 138/77, pulse ox 97% on room air. Blood sugars are running between 183 and 272. Metformin will be increased to 1000 mg twice daily and NovoLog 3 units with meals added. REVIEW OF SYSTEMS Constitutional: No fever, no chills, no night sweats. No weight change. No weakness, fatigue or lethargy. No daytime sleepiness. EENT: No headache. No blurred vision or double vision, no loss of vision. No loss of Hearing, no ringing in the ears, no dizziness. No nasal drainage or congestion. No epistaxis. No sore throat. Lungs: History of asthma, obstructive sleep apnea on BiPAP, but he is complain ing of No shortness of breath, cough, no sputum production. No wheezing. Cardiovascular: Has history of A. fib and atherosclerotic heart disease, denies chest pain, no lower extremity edema. No palpitations. No paroxysmal nocturnal dyspnea. No orthopnea. No lightheadedness or dizziness. No syncopal episodes. Abdominal: No abdominal pain. No nausea, vomiting. No diarrhea. Reports constipation. No bloody or tarry stools.. No loss of appetite. Genitourinary: No dysuria, increased frequency, urgency. No urinary retention. Musculoskeletal: No myalgias. No muscle weakness, no gait dysfunction, no frequent falls. No back pain. No neck pain. Integumentary: No wounds, no lesions. No rash or pruritus. No unusual bruising. No change in hair or nails. Neurologic: No aphasia. No facial droop. No change in mentation. No head injury. No headache. No paralysis. No paresthesia. Psychiatric: No depression. No anxiety. No mood swings. Endocrine: No abnormal blood sugars. No weight change. No excessive sweating or thirst. No cold intolerance. PHYSICAL EXAMINATION Gen: This is obese 70-year-old male. He is found sitting in a recliner and appears to be somewhat uncomfortable secondary to pain. He is currently on O2 at 3 L nasal cannula. HEENT: Head is atraumatic, normocephalic. Pupils equal, round. Sclerae is anicteric. NECK: Supple. No JVD. No lymphadenopathy. No thyromegaly. LUNGS: Decreased breath some bilaterally with fine rhonchi no crackles or wheezes. HEART: Irregular rate and rhythm, S1, S2 positive S3 No murmur. ABDOMEN: Soft. Bowel sounds are present. No masses. No tenderness. EXTREMITIES: Trace edema he skinned his left knee with slight bruise from recent injury with no sign of infection. NEUROLOGICAL: Patient is awake, alert and oriented x3. Cranial nerves 2 through 12 are grossly intact. ASSESSMENT AND PLAN 1. Post lumbar spine surgery: Patient is doing well resume home meds, incentive spirometry, DVT and GI prophylaxis protocol be done, continue current pain management per orthopedics, PT and OT 2. Acute kidney injury with chronic kidney disease stage III. Patient has been on IV fluids which will be to discontinued today. Recheck renal function tomorrow. 3. Paroxysmal A. fib: Pulse rate is under control currently we'll resume metoprolol Tatrate 12.5 mg daily patient was on Eliquis 5 mg twice a day. 3. Mild intermittent asthma/COPD without exacerbation: Patient is using BiPAP, is on oxygen currently, seen pulmonary and has been on Combivent along with Sing ulair and Symbicort. Medication will be resume Will add incentive spirometry and watch for any atelectasis. 4. History of hypertension: Continue patient on amlodipine 10 mg a day, metoprolol 12.5 mg daily and irbesartan 300 mg daily at bedtime. 5. Type 2 diabetes with hyperglycemia. Increase metformin to 1000 mg twice daily, add NovoLog 3 units with meals and continue NovoLog scale before meals and at bedtime. 6. Hyperlipidemia: Remain on Crestor 5 mg a day. 7. Chronic history of neuropathy: Most likely from spinal stenosis has been on gabapentin 600 mg twice a day. 8. Chronic pain management: Patient has been on tramadol and gabapentin. 9. Obstructive sleep apnea: Patient has been using BiPAP regular basis. 10. GI prophylaxis: Patient will be on Pepcid 20 mg twice a day. 11. DVT prophylaxis: Resume Eliquis. DISCHARGE PLAN Subacute rehab at [facility] on Friday Impression and plan of care have been directed as dictated by the signing physician. Shellie Meneses nurse practitioner acting as scribe for signing physician. Objective - Vital Signs Vital signs: Vital Signs Temp 98.5 F 07/23/21 03:04 Pulse 100 07/23/21 10:03 Resp 18 07/22/21 19:50 BP 140/52 07/23/21 03:04 Pulse Ox 97 07/23/21 03:04 Intake & Output 07/22/21 07/23/21 07/23/21 18:59 06:59 18:59 Output Total 600 Balance -600 Output: Urine 600 Other: Voiding Method Urinal # Bowel Movements 1 - Labs CBC & Chem 7: 07/21/21 03:10 07/21/21 03:10 Labs: Abnormal Lab Results - Last 24 Hours (Table) 07/22/21 07/22/21 07/22/21 Range/Units 11:35 16:35 21:12 POC Glucose (mg/dL) 272 H 256 H 193 H (75-99) mg/dL 07/23/21 Range/Units 07:33 POC Glucose (mg/dL) 183 H (75-99) mg/dL
[2021-07-23 16:49] LABS: Glucose,Whole Blood 148 mg/dL (75-99)
[2021-07-23 21:15] LABS: Glucose,Whole Blood 174 mg/dL (75-99)
[2021-07-23] MEDS: ATORVASTATIN 10 MG TAB PO SCH (21:50)
[2021-07-23] MEDS: MONTELUKAST 10 MG TAB PO SCH (21:50)
[2021-07-23] MEDS: LOSARTAN 50 MG TAB PO SCH (21:50)
[2021-07-24 07:04] LABS: Glucose,Whole Blood 152 mg/dL (75-99)
[2021-07-24 08:00] VITALS: RESP 16
[2021-07-24] MEDS: IPRATROPIUM-ALBUTEROL 3 ML NEB INHALATION SCH (08:03)
[2021-07-24] MEDS: SYMBICORT 160-4.5 MCG INHALER INHALATION SCH (08:03)
[2021-07-24] MEDS: INSULIN ASPART (NovoLOG) 100 UNIT/ML VIAL SQ SCH ×4 (08:04→13:23)
[2021-07-24] MEDS: metFORMIN 500 MG TAB PO SCH (08:05)
--- NOTE | 2021-07-24 08:53 | P.DS ---
Providers Date of admission: 07/21/21 08:42 Expected date of discharge: 07/24/21 Attending physician: Monica Young Consults: 07/18/21 13:59 Consult Physician Routine Consulting Provider: Adan Guerrier Reason/Comments: Medical management Do you want consulting provider notified?: Yes Primary care physician: Marcos Clark - Discharge Diagnosis(es) (1) Status post lumbar spinal fusion Current Visit: Yes Status: Acute (2) Low back pain Current Visit: Yes Status: Acute (3) Neurogenic claudication Current Visit: Yes Status: Acute (4) Lower extremity weakness Current Visit: Yes Status: Acute (5) Radiculopathy with lower extremity symptoms Current Visit: Yes Status: Acute (6) Lumbar degenerative disc disease Current Visit: Yes Status: Acute (7) Atrial fibrillation Current Visit: Yes Status: Acute (8) Obesity Current Visit: Yes Status: Acute (9) Heart disease Current Visit: Yes Status: Acute (10) Diabetes Current Visit: Yes Status: Acute (11) Hypertension Current Visit: Yes Status: Acute (12) Constipation Current Visit: Yes Status: Acute (13) Lumbar stenosis Current Visit: Yes Status: Acute Hospital Course: This is a pleasant 70-year-old male who presented with lumbar spinal stenosis, severe lumbar degenerative disc disease, neurogenic claudication, low back pain with lower extremity weakness and radiculopathy who failed outpatient conservative therapy. He was admitted for L3-4, L4-5, and L5-S1 minimally invasive posterior lateral decompression and fusion with transforaminal lumbar interbody fusion on 07/18/2021. Initially he had been progressing significantly slowly. He has made good improvements over the past 2 days. He states he was able to roll over in bed independently this morning. He was able to get out of bed with 1 person assist. His back pain is better controlled. He is not currently complaining lower extremity radiculopathy bilaterally. He feels his pain is well-controlled. He feels he is ready for discharge to a rehabilitation facility today. Condition on day of discharge stable. Patient will be discha rged to [facility] rehabilitation facility. Patient was cleared preoperatively for surgery by Dr. Marcos Clark. Patient currently denies any nausea, vomiting, fever, or chills. Patient is eating and voiding freely without difficulty. Dressings have been previously removed and patient may shower without dressing intact at this time. Patient should refrain from driving until at least after their first follow-up appointment in the office. Patient should avoid excessive bending, lifting, and twisting; no lifting greater than 10 pounds. He has had difficulty with having a bowel movement. He has had one small bowel movement since his admittance to the hospital. He is passing gas and states he does continue to try. He has been receiving multiple medications to help facilitate a bowel movement including Senokot, MiraLAX, milk of magnesia, and Fleet enema. MAPS was previously reviewed. An "Opiod Start Talking" Form has been signed and placed in the patient's chart. A prescription has been written for [place] 5 mg/325 mg 1 tablet every 4 hours as needed for pain, dispense #42. Prescription is written, signed, and placed in the patient's chart. Patient is also given a prescription for baclofen 10 mg 1 tab 3 times a day as needed for muscle spasm, dispensed #90. He should avoid anti-inflammatory medications over the next 6 weeks postoperatively. Patient's other medical diagnoses include diabetes, hypertension, heart disease, obesity, and history of atrial fibrillation. Patient will be cleared for discharge to rehabilitation facility today pending clearance by medicine and the patient must have a bowel movement prior to discharge. Medicine will plan to complete his med rec prior to discharge. Physical Exam on day of discharge: Status post surgical day number 6 Patient is awake, alert, and oriented 3 Vital signs stable Good chest excursion with deep inspiration and expiration Abdomen has some distention but is still somewhat soft without significant pain with palpation Dorsiflexion, plantarflexion, and extensor hallucis longus positive sustained bilaterally No signs or symptoms of DVT; no calf pain; pneumatic cuffs not currently intact bilateral lower extremities Surgical sites over the lumbar spine and right iliac crest and dry with no evidence of erythema, purulence, or signs of infection No active drainage from the surgical sites Neurovascularly intact bilaterally lower extremities Procedures: L3-4, L4-5, and L5-S1 minimally invasive posterior lateral decompression and fusion with transforaminal lumbar interbody fusion performed on 07/18/2021 Patient Condition at Discharge: Stable Plan - Discharge Summary Discharge Rx Participant: Yes New Discharge Prescriptions: New HYDROcodone/APAP 5-325MG [[place] 5] 1 each PO Q4HR PRN #42 tab PRN Reason: Pain Baclofen 10 mg PO TID PRN #90 tab PRN Reason: Spasms No Action traMADol HCL [Ultram] 100 mg PO TID Gabapentin 600 mg PO BID Rosuvastatin Calcium [Crestor] 5 mg PO HS amLODIPine [Norvasc] 10 mg PO DAILY metFORMIN HCL [Glucophage] 500 mg PO DAILY Montelukast [Singulair] 10 mg PO HS Metoprolol Tartrate [Lopressor] 12.5 mg PO QAM Apixaban [Eliquis] 5 mg PO BID hydrALAZINE HCL 25 mg PO TID Ipratropium/Albuterol Sulfate [Combivent Respimat Inhaler] 1 puff INHALATION BID Irbesartan [Avapro] 300 mg PO HS Budesonide-Formot 160-4.5 Mcg [Symbicort 160-4.5 Mcg Inhaler] 2 puff INHALATION BID Discharge Medication List traMADol HCL [Ultram] 100 mg PO TID 08/28/15 [History] Gabapentin 600 mg PO BID 11/10/16 [History] Rosuvastatin Calcium [Crestor] 5 mg PO HS 03/06/17 [History] amLODIPine [Norvasc] 10 mg PO DAILY 03/06/17 [History] Montelukast [Singulair] 10 mg PO HS 05/22/18 [History] metFORMIN HCL [Glucophage] 500 mg PO DAILY 05/22/18 [History] Apixaban [Eliquis] 5 mg PO BID 06/20/20 [History] Metoprolol Tartrate [Lopressor] 12.5 mg PO QAM 06/20/20 [History] Ipratropium/Albuterol Sulfate [Combivent Respimat Inhaler] 1 puff INHALATION BID 07/21/20 [History] Irbesartan [Avapro] 300 mg PO HS 07/21/20 [History] hydrALAZINE HCL 25 mg PO TID 07/21/20 [History] Budesonide-Formot 160-4.5 Mcg [Symbicort 160-4.5 Mcg Inhaler] 2 puff INHALATION BID 07/16/21 [History] Baclofen 10 mg PO TID PRN #90 tab 07/24/21 [Rx] HYDROcodone/APAP 5-325MG [[place] 5] 1 each PO Q4HR PRN #42 tab 07/24/21 [Rx] Follow up Appointment(s)/Referral(s): Monica Young, [Doctor of Osteopathic Medicine] - 08/07/21 2:45 pm [facility], [NON-STAFF] - ([facility] will call to schedule your home care visits. ) Activity/Diet/Wound Care/Special Instructions: Keep site clean. Do not soak in a tub. May showers without dressings intact Leave glue intact and allow it to fray off on its own. May ambulate as tolerated. Avoid heavy or rigorous activity. No repetitive bending twisting or lifting. No overhead work Take medications as prescribed. Discharge Disposition: TRANSFER TO SNF/ECF
[2021-07-24 09:35] VITALS: BP 138/73; PULSE 90; TEMP 98
[2021-07-24] MEDS: FAMOTIDINE 20 MG TAB PO SCH (09:54)
[2021-07-24] MEDS: APIXABAN 5 MG TAB PO SCH (09:54)
[2021-07-24] MEDS: SENNOSIDES-DOCUSATE SODIUM 1 EACH TAB PO SCH (09:55)
[2021-07-24] MEDS: amLODIPine 10 MG TAB PO SCH (09:56)
[2021-07-24] MEDS: LACTULOSE 20 GM/30 ML CUP PO SCH (09:56)
[2021-07-24] MEDS: METOPROLOL TARTRATE 12.5 MG TAB PO SCH (09:56)
[2021-07-24] MEDS: GABAPENTIN 300 MG CAP PO SCH (09:56)
[2021-07-24] MEDS: hydrALAZINE HCL 25 MG TAB PO SCH (09:56)
[2021-07-24] MEDS: polyethylene glycoL 3350 17 GM POWD.PACK PO SCH (09:57)
[2021-07-24 11:30] LABS: Glucose,Whole Blood 205 mg/dL (75-99)
[2021-07-24] MEDS: HYDROcodone/APAP 5-325MG 1 EACH TAB PO PRN (11:40)
--- NOTE | 2021-07-24 14:09 | P.PN ---
Subjective Progress Note Date: 07/24/21 HISTORY OF PRESENT ILLNESS 70-year-old male one of Dr. Marcos Clark's patient with multiple medical problem was known to have history of obstructive sleep apnea on BiPAP seen Dr. Singh regular basis also had history of asthma and active fibrillation seen Dr. EDILIA leach and has been on anticoagulation. Patient had developed severe lower back pain and discomfort for the last 2 years and has done conservative management along with pain management and epidural injection. Patient was seen by Dr. Young and schedule elective laminectomy and decompression of the lumbar spine. Patient ended up coming to the hospital today and have elective surgery successfully is up in the floor still waking up still have slight bit pain otherwise doing well. His medication will be finalized patient will have his BiPAP with him today to use through the night. He is not having any wheezes or any asthma flareup at this time his A. fib with pulse rates under control and patient he is hemodynamically stable. 07/19: Patient states that he is feeling so-so today. He is found sitting up in a chair. He has been afebrile, heart rate 118, blood pressure 104/59, pulse ox 94% on 3 L nasal cannula. WBC 11.7, hemoglobin 9.6, platelet count 248. Blood sugars running between 166 and 200. Patient is to work with PT and OT today, no plan for discharge today. Also plan to wean patient off oxygen, he is not oxygen dependent at home. 07/21: Patient is doing much better is in the chair laying down his pain is much better controlled than yesterday, patient mobility still significantly decreased patient probably require to go for subacute rehab. Blood sugar still mildly elevated patient is quite admitted extra help with it. 07/22: Patient is doing slightly but better today still laying in bed his mobility still significantly decreased hip been slightly bit discouraged about n ot improving on time. Plan is to get patient to subacute rehab by tomorrow for physical therapy for the next few days. Otherwise is not having any urinary retention, still have mild constipation, pain is well controlled with current medication. 07/23: States he is feeling all right today. He did have a bowel movement last evening which was very small and otherwise has not had a bowel movement since Friday. He is on lactulose 50 mg twice daily, milk of magnesia, MiraLAX 17 g daily, Senokot-S 2 daily. Fleets enema will be added today for constipation. Orthopedics is planning for discharge to [facility] tomorrow. He has been afebrile, heart rate 86, blood pressure 138/77, pulse ox 97% on room air. Blood sugars are running between 183 and 272. Metformin will be increased to 1000 mg twice daily and NovoLog 3 units with meals added. 07/24: Patient did not have a bowel movement after fleets enema yesterday. We are planning to continue the current bowel regime with lactulose 15 g twice daily, milk of magnesia daily, MiraLAX 17 g daily, Senokot-S 2 tablets daily. Medication reconciliation has been reviewed for discharge. Patient's discharge plan is to [facility] today under Dr. Jacobs. Patient is cleared for medicine for discharge. REVIEW OF SYSTEMS Constitutional: No fever, no chills, no night sweats. No weight change. No weakness, fatigue or lethargy. No daytime sleepiness. EENT: No headache. No blurred vision or double vision, no loss of vision. No loss of Hearing, no ringing in the ears, no dizziness. No nasal drainage or congestion. No epistaxis. No sore throat. Lungs: History of asthma, obstructive sleep apnea on BiPAP, but he is com plaining of No shortness of breath, cough, no sputum production. No wheezing. Cardiovascular: Has history of A. fib and atherosclerotic heart disease, denies chest pain, no lower extremity edema. No palpitations. No paroxysmal nocturnal dyspnea. No orthopnea. No lightheadedness or dizziness. No syncopal episodes. Abdominal: No abdominal pain. No nausea, vomiting. No diarrhea. Reports cons tipation. No bloody or tarry stools.. No loss of appetite. Genitourinary: No dysuria, increased frequency, urgency. No urinary retention. Musculoskeletal: No myalgias. No muscle weakness, no gait dysfunction, no frequent falls. No back pain. No neck pain. Integumentary: No wounds, no lesions. No rash or pruritus. No unusual bruising. No change in hair or nails. Neurologic: No aphasia. No facial droop. No change in mentation. No head injury. No headache. No paralysis. No paresthesia. Psychiatric: No depression. No anxiety. Endocrine: No abnormal blood sugars. No weight change. No excessive sweating or thirst. No cold intolerance. PHYSICAL EXAMINATION Gen: This is obese 70-year-old male. He is found sitting in a recliner and appears to be comfortable. HEENT: Head is atraumatic, normocephalic. Pupils equal, round. Sclerae is anicteric. NECK: Supple. No JVD. No lymphadenopathy. No thyromegaly. LUNGS: Decreased breath some bilaterally with fine rhonchi no crackles or wheezes. HEART: Irregular rate and rhythm, S1, S2 positive S3 No murmur. ABDOMEN: Soft. Bowel sounds are present. No masses. No tenderness. EXTREMITIES: Trace edema he skinned his left knee with slight bruise from recent injury with no sign of infection. NEUROLOGICAL: Patient is awake, alert and oriented x3. Cranial nerves 2 through 12 are grossly intact. ASSESSMENT AND PLAN 1. Post lumbar spine surgery: Patient is doing well resume home meds, incentive spirometry, DVT and GI prophylaxis protocol be done, continue current pain management per orthopedics, PT and OT 2. Acute kidney injury with chronic kidney disease stage III. Patient has been on IV fluids which will be to discontinued today. Recheck renal function tomor juanito. 3. Paroxysmal A. fib: Pulse rate is under control currently we'll resume metoprolol Tatrate 12.5 mg daily patient was on Eliquis 5 mg twice a day. 3. Mild intermittent asthma/COPD without exacerbation: Patient is using BiPAP, is on oxygen currently, seen pulmonary and has been on Combivent along with Singulair and Symbicort. Medication will be resume Will add incentive spirometry and watch for any atelectasis. 4. History of hypertension: Continue patient on amlodipine 10 mg a day, m etoprolol 12.5 mg daily and irbesartan 300 mg daily at bedtime. 5. Type 2 diabetes with hyperglycemia. Increase metformin to 1000 mg twice daily, add NovoLog 3 units with meals and continue NovoLog scale before meals and at bedtime. 6. Hyperlipidemia: Remain on Crestor 5 mg a day. 7. Chronic history of neuropathy: Most likely from spinal stenosis has been on gabapentin 600 mg twice a day. 8. Chronic pain management: Patient has been on tramadol and gabapentin. 9. Obstructive sleep apnea: Patient has been using BiPAP regular basis. 10. Constipation. Continue current regime. 11. GI prophylaxis: Patient will be on Pepcid 20 mg twice a day. 12. DVT prophylaxis: Resume Eliquis. DISCHARGE PLAN Subacute rehab at [facility] in the care of Dr. Jacobs Impression and plan of care have been directed as dictated by the signing physician. Shellie Meneses nurse practitioner acting as scribe for signing physician. Objective - Vital Signs Vital signs: Vital Signs Temp 98 F 07/24/21 09:34 Pulse 90 07/24/21 09:34 Resp 16 07/24/21 09:34 BP 138/73 07/24/21 09:34 Pulse Ox 97 07/24/21 09:34 Intake & Output 07/23/21 07/24/21 07/24/21 18:59 06:59 18:59 Other: # Voids 4 - Labs CBC & Chem 7: 07/21/21 03:10 07/21/21 03:10 Labs: Abnormal Lab Results - Last 24 Hours (Table) 07/23/21 07/23/21 07/23/21 Range/Units 11:54 14:05 16:48 POC Glucose (mg/dL) 272 H 234 H 148 H (75-99) mg/dL 07/23/21 07/24/21 Range/Units 21:09 07:03 POC Glucose (mg/dL) 174 H 152 H (75-99) mg/dL
== END 2021-07-24 14:01 | DRG 454 ==
LOC: OR 06:46 → EDSTATUS 11:55 → 4SSUR 14:00 → OR 07-19 11:20 → 4SSUR 07-19 12:04 → OBSVTOIN 07-21 08:42
PROVIDERS: ADMIT Orthopaedic Surgery Orthopaedic Surgery of the Spine; ATTEND Orthopaedic Surgery Orthopaedic Surgery of the Spine
PROC: 4A11X4G Monitoring of Peripheral Nervous Electrical Activity, Intraoperative, External Approach (ICD-10-PCS; principal; 2021-07-18 08:00)
PROC: 0SG3071 Fusion of Lumbosacral Joint with Autologous Tissue Substitute, Posterior Approach, Posterior Column, Open Approach (ICD-10-PCS; principal; 2021-07-18 08:00)
PROC: 0SG10AJ Fusion of 2 or more Lumbar Vertebral Joints with Interbody Fusion Device, Posterior Approach, Anterior Column, Open Approach (ICD-10-PCS; principal; 2021-07-18 08:00)
PROC: 0ST20ZZ Resection of Lumbar Vertebral Disc, Open Approach (ICD-10-PCS; principal; 2021-07-18 08:00)
PROC: 0SG1071 Fusion of 2 or more Lumbar Vertebral Joints with Autologous Tissue Substitute, Posterior Approach, Posterior Column, Open Approach (ICD-10-PCS; principal; 2021-07-18 08:00)
PROC: 0ST40ZZ Resection of Lumbosacral Disc, Open Approach (ICD-10-PCS; principal; 2021-07-18 08:00)
PROC: 0SG30AJ Fusion of Lumbosacral Joint with Interbody Fusion Device, Posterior Approach, Anterior Column, Open Approach (ICD-10-PCS; principal; 2021-07-18 08:00)
PROC: 5A09557 Assistance with Respiratory Ventilation, Greater than 96 Consecutive Hours, Continuous Positive Airway Pressure (ICD-10-PCS; 2021-07-19)
DX: M48.062 Spinal stenosis, lumbar region with neurogenic claudication (principal); M51.06 Intervertebral disc disorders with myelopathy, lumbar region; N17.9 Acute kidney failure, unspecified; E11.65 Type 2 diabetes mellitus with hyperglycemia; E11.22 Type 2 diabetes mellitus with diabetic chronic kidney disease; I48.0 Paroxysmal atrial fibrillation; G60.9 Hereditary and idiopathic neuropathy, unspecified; N18.30 Chronic kidney disease, stage 3 unspecified; J44.9 Chronic obstructive pulmonary disease, unspecified; Z20.822 Contact with and (suspected) exposure to COVID-19; I12.9 Hypertensive chronic kidney disease with stage 1 through stage 4 chronic kidney disease, or unspecified chronic kidney disease; M51.16 Intervertebral disc disorders with radiculopathy, lumbar region; M51.17 Intervertebral disc disorders with radiculopathy, lumbosacral region; M43.16 Spondylolisthesis, lumbar region; J45.20 Mild intermittent asthma, uncomplicated; G47.33 Obstructive sleep apnea (adult) (pediatric); M16.11 Unilateral primary osteoarthritis, right hip; K21.00 Gastro-esophageal reflux disease with esophagitis, without bleeding; I34.0 Nonrheumatic mitral (valve) insufficiency; I44.7 Left bundle-branch block, unspecified; E78.00 Pure hypercholesterolemia, unspecified; J30.9 Allergic rhinitis, unspecified; I25.10 Atherosclerotic heart disease of native coronary artery without angina pectoris; E78.2 Mixed hyperlipidemia; N40.0 Benign prostatic hyperplasia without lower urinary tract symptoms; K59.00 Constipation, unspecified; N52.9 Male erectile dysfunction, unspecified; G47.00 Insomnia, unspecified; G89.29 Other chronic pain; E66.9 Obesity, unspecified; Z68.37 Body mass index [BMI] 37.0-37.9, adult; Z79.01 Long term (current) use of anticoagulants; Z79.51 Long term (current) use of inhaled steroids; Z79.84 Long term (current) use of oral hypoglycemic drugs; Z79.891 Long term (current) use of opiate analgesic; Z79.899 Other long term (current) drug therapy; Z87.891 Personal history of nicotine dependence; Z98.84 Bariatric surgery status; Z60.2 Problems related to living alone; Z90.89 Acquired absence of other organs; Z87.39 Personal history of other diseases of the musculoskeletal system and connective tissue; Z86.59 Personal history of other mental and behavioral disorders; Z98.890 Other specified postprocedural states; Z80.42 Family history of malignant neoplasm of prostate; Z82.3 Family history of stroke; Z80.8 Family history of malignant neoplasm of other organs or systems; Z83.3 Family history of diabetes mellitus
CPT/HCPCS: 72100; 80048; 80053; 85025; 85027; 86850; 86891; 86900; 86901; 87635; 94640; 94760

== ENCOUNTER → 2021-11-06 | Outpatient (CLI) | payer MEDICARE ==
[2021-11-06 18:58] LABS: HCT 37.7 % (39.6-50.0); HGB 11.4 g/dL (13.0-17.0); MCH 27.5 pg (27.0-32.0); MCHC 30.2 g/dL (32.0-37.0); MCV 90.8 fL (80.0-97.0); Mean Platelet Volume 9.4 fL (9.5-12.2); NRBC Per 100 WBC 0 /100 WBCS (0.0-0.0); Platelet Count 385 X 10*3/uL (140-440); RBC 4.15 X 10*6/uL (4.40-5.60); RDW 15.2 % (11.5-14.5); WBC 11.48 X 10*3/uL (4.50-10.00)
[2021-11-06 19:04] LABS: African American GFR (CKD) 50.6 (60.0-200.0); Anion Gap 12.4 mmol/L (10.00-18.00); Blood Urea Nitrogen 18.7 mg/dL (9.0-27.0); Carbon Dioxide 19.7 mmol/L (20.0-27.5); Non-African American GFR(CKD) 43.7 (60.0-200.0); Potassium 4.8 mmol/L (3.5-5.5)
[2021-11-07 13:28] LABS: Coronavirus SARS CoV-2 Not Detected (Not Detected)
== END | disposition home or self-care (01) ==
LOC: LABPAT 11:06
PROVIDERS: ATTEND Internal Medicine Interventional Cardiology
DX: Z01.812 Encounter for preprocedural laboratory examination (principal); Z20.822 Contact with and (suspected) exposure to COVID-19; I25.118 Atherosclerotic heart disease of native coronary artery with other forms of angina pectoris
CPT/HCPCS: 80051; 82565; 84520; 85027; U0003

== ENCOUNTER 2021-11-08 05:57 | Day surgery (SDC) | payer MEDICARE ==
[2021-11-06 14:10] VITALS: BMI 38.5
[~2021-11-08 05:57] MED LIST changes: +ALPRAZolam 0.25 MG TAB PO PRN; +ALPRAZolam 0.5 MG TAB PO PRN; +ASPIRIN 325 MG TAB PO STA; +ATORVASTATIN 80 MG TAB PO STA; +HEPARIN SODIUM,PORCINE 10,000 UNIT in SODIUM CHLORIDE 0.9% 1,000 ML IRRIGATION PRN; +HEPARIN SODIUM,PORCINE 2,500 UNIT in SODIUM CHLORIDE 0.9% 250 ML IRRIGATION PRN; -LIDOCAINE 1% (10MG/ML) FOR IV START INTRADERMA PRN; +NITROGLYCERIN SL TABS 0.4 MG TAB SUBLINGUAL PRN; +SODIUM CHLORIDE 0.9% 1,000 ML in EMPTY BAG 1 BAG IV SCH; -ceFAZolin 1,000 MG in SODIUM CHLORIDE 0.9% IRRIGATIO 1,000 ML IRRIGATION PRN; -ceFAZolin 3 GM in SODIUM CHLORIDE 0.9% 100 ML IVPB PRN
[2021-11-08 06:22] LABS: Glucose,Whole Blood 175 mg/dL (75-99)
[2021-11-08] MEDS ORDERED: VERAPAMIL 2.5 MG/ML 2 ML AMP ONE (07:20)
[2021-11-08] MEDS ORDERED: HEPARIN SODIUM 1,000 UN/ML (10ML VL) ONE (07:23)
[2021-11-08 07:30] VITALS: TEMP 98.4
[2021-11-08] MEDS ORDERED: LIDOCAINE 1% INJ 10MG/ML (20 ML MDV) SQ ONE ×2 (07:48→07:54)
[2021-11-08] MEDS ORDERED: MIDAZOLAM 2 MG/2 ML VIAL IV ONE ×2 (07:48)
[2021-11-08] MEDS: MIDAZOLAM 2 MG/2 ML VIAL IV ONE ×2 (07:48→08:00)
[2021-11-08] MEDS ORDERED: VERAPAMIL SYRINGE (5 MG/10 ML) INTRAARTER ONE (07:57)
[2021-11-08] MEDS ORDERED: HEPARIN SODIUM 1,000 UN/ML (10ML VL) IV ONE (08:00)
[2021-11-08] MEDS ORDERED: IOPAMIDOL-370 100ML BTL INJ ONE (08:11)
[2021-11-08] MEDS ORDERED: SODIUM CHLORIDE 0.9% 1,000 ML IV SCH (08:30)
--- NOTE | 2021-11-08 10:27 | CC ---
CARDIAC CATHETERIZATION REPORT DATE OF SERVICE: 11/08/2021. PROCEDURE: Coronary angiography. PERFORMED BY: Dr. Jose Garcia. Moderate conscious sedation time was 25 minutes. Patient was administered Versed. Oxygen saturation, hemodynamics and EKG were monitored closely. CLINICAL INFORMATION: Mr. Dipesh Monaco is a patient with paroxysmal atrial fibrillation, hypertension, hyperlipidemia, and moderate CAD. He also has type 2 diabetes mellitus. He was advised cardiac cath because of ongoing episodes of chest discomfort suggestive of angina. The risks, benefits, options, rationale were discussed with the patient at length. PROCEDURE NOTE: Under local anesthesia and strict aseptic precautions, a 6-Macedonian introducer was placed in the right radial artery. Using JR4 catheters and JL 3.5 catheters, I performed coronary angiography. I tried to get into the LV with a right Elise catheter and also with a pigtail. I was able to advance the wire, but because of spasm and tortuosity, I had difficulty advancing the catheter and therefore I did not get the pressures. Following the procedure, the sheath was taken out and TR band applied as per protocol with saturation of the fingers of the right hand of 94%. The patient tolerated the procedure well without complications. His creatinine was elevated. He was fully hydrated before the procedure. CARDIAC CATHETERIZATION FINDINGS: RIGHT CORONARY ARTERY: The right coronary artery is a large dominant vessel, has no significant disease in the proximal and midportion. Distally it bifurcates into PDA and PLV. The PDA has about a 40% to 45% narrowing best seen in the AP cranial projection. It is about a 45% blockage. PLV also has some calcification. Mid lesion is noted in the PLV of about 40% as well. However, the rest of the RCA is unchanged. Compared to the previous study from 2017, there is mild progression of disease noted. The PLV distally also has some disease, but PDA has about a 40 to 45% narrowing. LEFT MAIN CORONARY ARTERY: This is a short patent disease-free vessel that trifurcates into LAD, circumflex and ramus intermedius. Left main itself is free of significant disease. LEFT ANTERIOR DESCENDING CORONARY ARTERY: Good caliber vessel, extends along the anterior wall, gives off septal and diagonal branches, runs all the way to the apex supplying a sizable amount of myocardium. There are minor irregularities and some diffuse disease in the distal one fourth, but no significant disease in the LAD overall. RAMUS INTERMEDIUS: This is a fair caliber vessel has about a 40% narrowing proximally, runs distally, supplies a fair amount of myocardium, has minor irregularities. LEFT POSTERIOR CIRCUMFLEX CORONARY ARTERY: Small nondominant vessel with a 50% proximal lesion and small branches come off from it, a small obtuse marginal and AV groove branch. There is about a 50% stenosis in the small nondominant circumflex. LEFT VENTRICULOGRAM: Not performed. FINAL IMPRESSION: This patient has a moderate noncritical CAD. A right-dominant system is noted with a 40% to 45% stenosis in the PDA branch and a 40% in the PLV branch. The circumflex is small nondominant, has a 50% lesion. Ramus has a 35-40 percent lesion. LAD is free of significant disease. LV-gram was not performed. RECOMMENDATIONS: I am recommending that we will pursue medical therapy. No intervention. His previous stress test also did not reveal any significant evidence of ischemia. The risk factor modification is advised. Patient will be discharged later today and I will see him in the office in 1 week. MMODL / IJN: [id number] /
[2021-11-08 10:59] VITALS: RESP 16
[2021-11-08 14:40] VITALS: PULSE 50
[2021-11-08 14:41] VITALS: BP 164/74
== END 2021-11-08 14:37 | disposition home or self-care (01) ==
LOC: CATHCVL 05:57
PROVIDERS: ATTEND Internal Medicine Interventional Cardiology
DX: I25.10 Atherosclerotic heart disease of native coronary artery without angina pectoris (principal); I48.0 Paroxysmal atrial fibrillation; I10 Essential (primary) hypertension; E78.5 Hyperlipidemia, unspecified; E11.9 Type 2 diabetes mellitus without complications; I44.7 Left bundle-branch block, unspecified; G89.29 Other chronic pain; M54.9 Dorsalgia, unspecified; Z79.01 Long term (current) use of anticoagulants; Z79.899 Other long term (current) drug therapy; Z79.84 Long term (current) use of oral hypoglycemic drugs; Z79.51 Long term (current) use of inhaled steroids; Z82.49 Family history of ischemic heart disease and other diseases of the circulatory system
CPT/HCPCS: 93454; C1894; C1769; J2250; J2001; J1644; Q9967

== ENCOUNTER → 2023-09-20 | Outpatient (CLI) | payer MEDICARE ==
--- NOTE | 2023-09-22 20:35 | MR ---
EXAMINATION TYPE: MR Prostate wo/w con DATE OF EXAM: 09/20/2023 11:17 AM COMPARISON: None. CLINICAL INDICATION:Male, 72 years old with history of C61 MALIGNANT NEOPLASM OF PROSTATE TECHNIQUE: Multi-planar, multi-sequence imaging of the pelvis is performed prior to and following the uncomplicated administration of bolus intravenous gadolinium. CONTRAST: 14.5 Gadavist Interpretive Criteria: PI-RADS v2.1 SERUM PSA: 7.6 on August 2023. 8.99 on February 2023. SURGICAL PATHOLOGY: Positive biopsy right lateral base, 08/15/2022. Portion of the report is absent in volving biopsies I through L. FINDINGS: Prostatic dimensions: 5.3 x 5.6 x 4.2 cm. Ellipsoid Volume:65.27 (PSA density=0.12 ng/mL/mL CENTRAL GLAND (Central and Transition Zones/CZ+TZ): There is some ill-defined T2 signal within the central gland extending to the right lateral periphera l gland without increased DWI/low ADC signal measuring 22 x 21 mm. Series 301 image 20, 501 image 18. (PI-RADS 5) PERIPHERAL ZONE (PZ): Gas within the rectum limits evaluation of the lung. Bilateral linear, indistinct wedgelike areas of low ADC, and low T2 signal, No evidence of masslike a bnormality, or localized perfusional hypervascularity, to further suggest a focus of clinically signi ficant prostate cancer. (PI-RADS 2) SEMINAL VESICLES (SV): Symmetric and unremarkable. PERIPROSTATIC TISSUES: Unremarkable. LYMPH NODES: No enlarged pelvic lymph node. REMAINING PELVIS: Bladder wall is within normal limits given distention. No abnormal free or organized intrapelvic fluid collection. No pathologic bowel dilation or mural thickening. Bilateral fat containing inguinal hernias. OSSEOUS STRUCTURES: No suspicious osseous abnormality. Fixation hardware in the lumbar spine with susceptibility artifact . IMPRESSION: 1. Right central mid gland/base and homogenous ill-defined T2 signal measuring up to 22 x 21 PI-RADS 5 based on size criteria. Tissue sampling recommended to rule out prostate adenocarcinoma is recommen ded. 2. Moderate BPH, estimated gland volume 65.27 mL.
== END | disposition home or self-care (01) ==
LOC: RADMRIMAIN 09:16
PROVIDERS: ATTEND Urology
DX: C61 Malignant neoplasm of prostate (principal); N40.0 Benign prostatic hyperplasia without lower urinary tract symptoms
CPT/HCPCS: 72197; A9585